=== PATIENT | male | born 1980 | race African-American/Black ===

== ENCOUNTER 2016-06-22 19:33 | Emergency (ER) | payer MEDICARE, OTHER ==
[~2016-06-22] VITALS: Ht 185.4 cm; Wt 87.1 kg
[~2016-06-22 19:33] MED LIST: CEPHALEXIN500 MG ORAL; DOXYCYCLINE MO100 MG ORAL; MEGACE400 MG/11 PO; MEGESTROL ACETA20 MG ORAL; NAPROSYN500 M1 ORAL; NORCO 10/3251 EA ORAL
[2016-06-22] MEDS ORDERED: triumeq PO (19:44)
[2016-06-22] MEDS ORDERED: ACYCLOVIR200 MG ORAL (19:44)
[2016-06-22 19:50] VITALS: BP 122/84
[2016-06-22] MEDS ORDERED: Azithromycin 250mg tab ORAL ONE (20:00)
[2016-06-22 20:12] LABS: APPEARANCE,URINE CLEAR; KETONES,URINE NEGATIVE (NEGATIVE); LEUKOCYTE ESTERASE ,URINE 2+ (NEGATIVE); NITRITE,URINE NEGATIVE (NEGATIVE); PH,URINE 7 (4.5-8.0); PROTEIN,URINE 1+ (NEGATIVE); UROBILINOGEN,URINE 1 MG/DL (0.0-1.0)
[2016-06-22 20:27] LABS: RBC,URINE 0-2 /HPF (0 - 0)
[2016-06-22 20:28] LABS: BACTERIA,URINE FEW /HPF; SQUAMOUS EPITHELIAL CELL,UR OCCASIONAL /LPF (NONE/OCC); WBC,URINE 30-40 /HPF (0 - 0)
[2016-06-22] MEDS ORDERED: KEFLEX500 MG ORAL (20:36)
[2016-06-22 20:58] VITALS: BP 124/79
--- NOTE | 2016-06-22 21:49 | Emergency Room Report ---
History of Present Illness General Chief Complaint: Male Urogenital Problems Source: Patient Present Illness [facility] The patient is a 35-year-old male presenting for 3 days of dysuria and white penile discharge. Patient describes pain as an 8/10 burning sensation which occurs only with urination. Pain does not radiate. The patient denies any other symptoms including nausea, vomiting, fever, chills, hematuria, increased urinary frequency, flank pain, abdominal pain. Allergies: Coded Allergies: DIPHENHYDRAMINE (Unverified Allergy, Severe, Hives, 05/11/14) IBUPROFEN (Unverified Allergy, Severe, Hives, 05/11/14) Patient History Past Medical History: see triage record Pertinent Family History: none Reviewed Nursing Documentation: PMH: Agreed, PSxH: Agreed Nursing Documentation-PMH Hx Hypertension: Yes Review of Systems All Other Systems: negative except mentioned in HPI Physical Exam Vital Signs Date Time Temp Pulse Resp B/P Pulse Ox O2 Delivery O2 Flow Rate FiO2 06/22/16 19:36 98.1 93 16 122/84 100 Room Air Sp02 EP Interpretation: reviewed, normal General Appearance: no apparent distress, alert, GCS 15, non-toxic Head: normocephalic, atraumatic Eyes: bilateral eye PERRL, bilateral eye normal inspection ENT: hearing grossly normal, normal pharynx, no angioedema, normal voice Neck: full range of motion, supple/symm/no masses Gastrointestinal: normal bowel sounds, non tender, soft, non-distended, no guarding, no rebound Genitourinary: normal inspection, no CVA tenderness, penis normal Musculoskeletal: back normal, gait/station normal, normal range of motion, non- tender Neurologic: alert, oriented x3, responsive, motor strength/tone normal, sensory intact, speech normal Psychiatric: judgement/insight normal, memory normal, mood/affect normal, no suicidal/homicidal ideation Skin: normal color, no rash, warm/dry, well hydrated Lymphatic: no adenopathy Medical Decision Making PA Attestation Dr. Morales is my supervising physician. Patient management was discussed with my supervising physician Diagnostic Impression: Primary Impression: Urinary tract infection Additional Impression: Possible exposure to STD ER Course The patient is a 35-year-old male presenting for 3 days of dysuria and white penile discharge. Differential diagnosis considered but not limited to: UTI, pyelonephritis, STD, urethritis Physical exam: Vitals within normal limits. No apparent distress Abdomen is soft and nontender. Normal bowel sounds. No CVA tenderness. Penis appears normal. Nontender. No lesions. No discharge Scrotum appears normal. No edema. No erythema. Nontender. UA: 30-40 WBCs with few bacteria Pt given 1gm azithromycin PO and 250mg Rocephin IM. [facility] ER precautions given. Laboratory Tests Test 06/22/16 19:48 Urine Color Yellow Urine Appearance Clear Urine pH 7 (4.5-8.0) Urine Specific [place] 1.010 (1.005-1.035) Urine Protein 1+ (NEGATIVE) H Urine Glucose (UA) Negative (NEGATIVE) Urine Ketones Negative (NEGATIVE) Urine Occult Blood Negative (NEGATIVE) Urine Nitrite Negative (NEGATIVE) Urine Bilirubin Negative (NEGATIVE) Urine Urobilinogen 1 MG/DL (0.0-1.0) H Urine Leukocyte Esterase 2+ (NEGATIVE) H Urine RBC 0-2 /HPF (0 - 0) H Urine WBC 30-40 /HPF (0 - 0) H Urine Squamous Epithelial Cells Occasional /LPF Urine Bacteria Few /HPF (NONE) Lab Results Impression 30-40 WBCs with few bacteria Last Vital Signs Date Time Temp Pulse Resp B/P Pulse Ox O2 Delivery O2 Flow Rate FiO2 06/22/16 20:58 98.1 89 16 122/84 100 Room Air Status: improved Disposition: HOME, SELF-CARE Condition: Improved Scripts Cephalexin* (KEFLEX*) 500 Mg Capsule 500 MG ORAL EVERY 6 HOURS, #28 CAP 0 Refills Prov: KATIE FOY 06/22/16 Referrals: NON PHYSICIAN (PCP) Patient Instructions: Urinary Tract Infection Additional Instructions: I discussed my findings with the patient. All questions and concerns have been answered. Treatment and medication compliance have been addressed. I advised the patient that they need to follow up with PMD in 3-5 days. Return to ED if symptoms worsen, new symptoms arise, or if needed for any reason. Patient verbalized understanding of discharge instructions. KATIE FOY Jun 22, 2016 21:49
== END 2016-06-22 20:58 | disposition home or self-care (01) ==
LOC: EMR 20:50
DX: N39.0 Urinary tract infection, site not specified (principal); Z20.2 Contact with and (suspected) exposure to infections with a predominantly sexual mode of transmission; I10 Essential (primary) hypertension; Z88.8 Allergy status to other drugs, medicaments and biological substances; Z88.6 Allergy status to analgesic agent
CPT/HCPCS: 81003; 96372; 99283; J0696

== ENCOUNTER 2016-08-29 16:17 | Emergency (ER) | payer MEDICARE, OTHER ==
[~2016-08-29] VITALS: Ht 185.4 cm; Wt 87.1 kg
[~2016-08-29 16:17] MED LIST changes: +ACYCLOVIR200 MG ORAL; +KEFLEX500 MG ORAL; +triumeq PO
--- NOTE | 2016-08-29 16:48 | Emergency Room Report ---
History of Present Illness General Chief Complaint: Eye Problems Present Illness HPI 35-year-old male presents emergency department complaining of bilateral twitching of the eye x1 week. Patient denies erythema, discharge, increase in my permission, foreign body sensation, eye pain, trauma to the eye. Patient denies drug use. Patient reports he has been under tremendous stress lately and has been having difficulty sleeping. Patient reports past medical history of HIV denies fevers chills cough recent illness or ill contacts.Denies CP, Palpitations, LOC, AMS, dizziness, Changes in Vision, Sensation, paresthesias, or a sudden severe headache. Allergies: Coded Allergies: DIPHENHYDRAMINE (Unverified Allergy, Severe, Hives, 05/11/14) IBUPROFEN (Unverified Allergy, Severe, Hives, 05/11/14) Patient History Past Medical History: see triage record Past Surgical History: none Pertinent Family History: none Immunizations: UTD Reviewed Nursing Documentation: PMH: Agreed, PSxH: Agreed Nursing Documentation-PMH Hx Hypertension: Yes Review of Systems All Other Systems: negative except mentioned in HPI Physical Exam Vital Signs Date Time Temp Pulse Resp B/P Pulse Ox O2 Delivery O2 Flow Rate FiO2 08/29/16 16:20 97.9 109 20 131/84 95 Room Air Sp02 EP Interpretation: reviewed, abnormal - tachycardic at 109 General Appearance: no apparent distress, alert, GCS 15, non-toxic Head: normocephalic, atraumatic Eyes: bilateral eye EOMI, bilateral eye PERRL, bilateral eye normal inspection ENT: hearing grossly normal, normal pharynx, no angioedema, normal voice Neck: full range of motion, supple/symm/no masses Respiratory: chest non-tender, lungs clear, normal breath sounds, speaking full sentences Cardiovascular #1: regular rate, rhythm, no edema Musculoskeletal: back normal, gait/station normal, normal range of motion, non- tender Neurologic: alert, oriented x3, responsive, motor strength/tone normal, sensory intact, speech normal Psychiatric: judgement/insight normal, memory normal, mood/affect normal Skin: normal color, no rash, warm/dry, well hydrated Lymphatic: no adenopathy Medical Decision Making PA Attestation Dr. Clark is my supervising Physician whom patient management has been discussed with. Diagnostic Impression: Primary Impression: Eye twitch ER Course 35-year-old male presents emergency department complaining of bilateral twitching of the eye x1 week. Patient denies erythema, discharge, increase in my permission, foreign body sensation, eye pain, trauma to the eye. Patient denies drug use. Patient reports he has been under tremendous stress lately and has been having difficulty sleeping. Patient reports past medical history of HIV denies fevers chills cough recent illness or ill contacts. - Pt denies Contact lens use. Ddx considered but are not limited to: corneal abrasion, acute glaucoma, globe rupture, FB, Corneal Ulcer, conjunctivitis. Iridis Vital signs: are WNL, pt. is afebrile H&PE are most consistent with: corneal abrasion ORDERS: -none required at this time. As patient symptoms are only limited to twitching of the eyelid there is no evidence of infection or history that suggests foreign body at this time emergent condition is not present. ED INTERVENTIONS: none at this time. -I do not suspect an emergent condition at this time. with current presentation pt. is stable for close outpatient follow up. DISCHARGE: At this time pt. is stable for d/c to home. Will provide printed patient care instructions, and any necessary prescriptions. Care plan and follow up instructions have been discussed with the patient prior to discharge. . Last Vital Signs Date Time Temp Pulse Resp B/P Pulse Ox O2 Delivery O2 Flow Rate FiO2 08/29/16 16:20 97.9 109 20 131/84 95 Room Air Disposition: HOME, SELF-CARE Condition: Stable Scripts Dextran 70/Hypromellose (ARTIFICIAL TEARS EYE DROPS*) 15 Ml Drops 1 DROP BOTH EYES Q6HR, #15 ML 0 Refills Prov: Radha Catalan 08/29/16 Patient Instructions: Medical Screening Exam Additional Instructions: Take medications as directed. Follow up with PCP or Framing Mill Operator Helper in 3-5 days- especially if eye twitching symptoms continue. Return sooner to ED if new symptoms occur, or current symptoms become worse. - Please note that this Emergency Department Report was dictated using LinguaLeoresistor inspector technology software, occasionally this can lead to erroneous entry secondary to interpretation by the dictation equipment. Radha Catalan August 29, 2016 16:48
[2016-08-29] MEDS ORDERED: ARTIFICIAL TEAR15 ML BOTH EYES (16:50)
[2016-08-29 16:57] VITALS: BP 131/84
[2016-08-29 17:01] VITALS: BP 131/84
== END 2016-08-29 17:00 | disposition home or self-care (01) ==
LOC: EMR 17:00
DX: H57.8 Other specified disorders of eye and adnexa (principal); I10 Essential (primary) hypertension; Z88.6 Allergy status to analgesic agent
CPT/HCPCS: 99283

== ENCOUNTER 2016-10-03 21:35 | Emergency (ER) | payer MEDICARE, OTHER ==
[~2016-10-03] VITALS: Ht 185.4 cm; Wt 87.1 kg
[~2016-10-03 21:35] MED LIST changes: +ARTIFICIAL TEAR15 ML BOTH EYES
[2016-10-03] MEDS ORDERED: LISINOPRIL10 MG ORAL (21:44)
[2016-10-03] MEDS ORDERED: MULTI VITAMIN1 EACH ORAL (21:44)
[2016-10-03] MEDS ORDERED: CLARITIN10 M2 ORAL (21:44)
[2016-10-03 21:45] VITALS: BP 123/82
[2016-10-03] MEDS ORDERED: SIMETHICONE80 MG ORAL (22:45)
[2016-10-03] MEDS ORDERED: PEPCID20 MG ORAL (22:45)
[2016-10-03 22:51] VITALS: BP 128/71
[2016-10-03] MEDS ORDERED: Mylanta II UD 30ml ORAL ONE (23:00)
--- NOTE | 2016-10-03 23:06 | Emergency Room Report ---
History of Present Illness General Chief Complaint: Constipation Source: Patient Present Illness HPI 35YOM walk-in with 1 day stomach bloating, discomfort, nausea. Had BM earlier but "Wasnt complete." Had to "force it." Recent change in diet after DC from psych facility and now eating at soup kitchen. Denies previous abd/pelvic surgery. Denies urinary complaints, vomiting, diarrhea. Allergies: Coded Allergies: No Known Allergies (Unverified , 10/03/16) Patient History Past Medical History: psych hx Past Surgical History: none Pertinent Family History: none Social History: Denies: alcohol use, drug use, smoking Immunizations: UTD Reviewed Nursing Documentation: PMH: Agreed, PSxH: Agreed Nursing Documentation-PMH Hx Hypertension: Yes Review of Systems All Other Systems: negative except mentioned in HPI Physical Exam Vital Signs Date Time Temp Pulse Resp B/P Pulse Ox O2 Delivery O2 Flow Rate FiO2 10/03/16 21:39 98.1 76 16 123/82 95 Room Air Sp02 EP Interpretation: reviewed, normal General Appearance: normal inspection, well appearing, no apparent distress, alert, GCS 15, non-toxic Head: normocephalic, atraumatic Eyes: bilateral eye EOMI, bilateral eye PERRL ENT: normal ENT inspection, hearing grossly normal, normal voice Neck: normal inspection, full range of motion, supple, no bony tend Respiratory: normal inspection, lungs clear, normal breath sounds, no respiratory distress, no retraction, no wheezing Cardiovascular #1: regular rate, rhythm, no edema Gastrointestinal: normal inspection, normal bowel sounds, non tender, soft, no guarding, no hernia Genitourinary: no CVA tenderness Musculoskeletal: normal inspection, back normal, normal range of motion, Liza' s Sign negative Neurologic: normal inspection, alert, oriented x3, responsive, tailor garment fitter III-XII nml as tested, motor strength/tone normal, speech normal Psychiatric: normal inspection, judgement/insight normal, mood/affect normal Skin: normal inspection, normal color, no rash Lymphatic: normal inspection Medical Decision Making Diagnostic Impression: Primary Impression: Bloating Additional Impression: Viral gastroenteritis ER Course Likely viral gastroenteritis symptoms VSS. Afebrile. Non focal abdomen Low suspicion for acute bacterial or surgical process requiring further lab, imaging or admission Rx supportive Tx DC home Last Vital Signs Date Time Temp Pulse Resp B/P Pulse Ox O2 Delivery O2 Flow Rate FiO2 10/03/16 21:39 98.1 76 16 123/82 95 Room Air Status: improved Disposition: HOME, SELF-CARE Condition: Improved Scripts Simethicone* (SIMETHICONE*) 80 Mg Tab.chew 80 MG ORAL Q8H Y for GAS PAIN for 7 Days, #20 TAB 0 Refills Prov: MIGUEL ARORA M.D. 10/03/16 Famotidine (PEPCID) 20 Mg Tablet 20 MG ORAL BID for 7 Days, #14 TAB 0 Refills Prov: MIGUEL ARORA M.D. 10/03/16 Referrals: NON PHYSICIAN (PCP) Patient Instructions: Viral Gastroenteritis, Adult, [id number] Additional Instructions: - Take pepcid twice daily for 1 week - Take simethicone as needed for bloating MIGUEL ARORA M.D. Oct 03, 2016 23:06
== END 2016-10-03 22:51 | disposition home or self-care (01) ==
LOC: EMR 21:55
DX: R14.0 Abdominal distension (gaseous) (principal); A08.4 Viral intestinal infection, unspecified; I10 Essential (primary) hypertension
CPT/HCPCS: 99284

== ENCOUNTER 2017-01-14 15:47 | Emergency (ER) | payer MEDICARE, OTHER ==
[~2017-01-14] VITALS: Ht 185.4 cm; Wt 86.2 kg
[~2017-01-14 15:47] MED LIST changes: +CLARITIN10 M2 ORAL; +LISINOPRIL10 MG ORAL; +MULTI VITAMIN1 EACH ORAL; +PEPCID20 MG ORAL; +SIMETHICONE80 MG ORAL
[2017-01-14] MEDS ORDERED: Ketorolac 60mg Inj IM ONE (16:30)
--- NOTE | 2017-01-14 16:30 | Emergency Room Report ---
History of Present Illness General Chief Complaint: Back Pain-No Injury Source: Patient Present Illness HPI 36-year-old male presents to the emergency department complaining of 8/10 in severity localized left-sided upper back pain times several weeks. Patient denies appreciable trauma or fall. Patient denies fevers, chills, recent spinal procedures, history of cancer or recent illness. Patient states he does not recall specific incident of strenuous activity. Patient states the pain is tight and spasm-ing in nature and he believes is muscular. Patient denies midline spinal or neck pain. He has not taken any medication for his symptoms. pt. initially thought he slept wrong and have been doing watchful waiting at home. Denies numbness tingling or loss of sensation or gross motor movements of the extremities, incontinence of bowel or bladder. Denies CP, Palpitations, LOC , AMS, dizziness, Changes in Vision, Sensation, paresthesias, or a sudden severe headache. Allergies: Coded Allergies: No Known Allergies (Unverified , 10/03/16) Patient History Past Medical History: see triage record Past Surgical History: none Pertinent Family History: none Immunizations: UTD Reviewed Nursing Documentation: PMH: Agreed, PSxH: Agreed Nursing Documentation-PMH Past Medical History: No History, Except For Hx Hypertension: Yes Review of Systems All Other Systems: negative except mentioned in HPI Physical Exam Vital Signs Date Time Temp Pulse Resp B/P (MAP) Pulse Ox O2 Delivery O2 Flow Rate FiO2 01/14/17 15:56 97.9 79 18 182/137 97 Room Air Sp02 EP Interpretation: reviewed, normal General Appearance: no apparent distress, alert, GCS 15, non-toxic Head: normocephalic, atraumatic Eyes: bilateral eye normal inspection, bilateral eye PERRL ENT: hearing grossly normal, normal voice Neck: full range of motion Respiratory: lungs clear, normal breath sounds, speaking full sentences Cardiovascular #1: regular rate, rhythm Gastrointestinal: non tender, non-distended Rectal: deferred Genitourinary: normal inspection, no CVA tenderness Musculoskeletal: back normal, gait/station normal, normal range of motion, tender - TTP in the Left thoracic paraspinal muscles, no midline ttp, no obvious deformities, FROM. Neurologic: alert, oriented x3, responsive, motor strength/tone normal, sensory intact, normal gait, speech normal Psychiatric: judgement/insight normal, memory normal, mood/affect normal Skin: normal color, no rash, warm/dry, well hydrated Medical Decision Making PA Attestation Dr. Guzman is my supervising Physician whom patient management has been discussed with. Diagnostic Impression: Primary Impression: Paraspinal muscle spasm Additional Impression: Back pain Qualified Codes: M54.6 - Pain in thoracic spine ER Course 36-year-old male presents to the emergency department complaining of 8/10 in severity localized left-sided upper back pain times several weeks. Patient denies appreciable trauma or fall. Patient denies fevers, chills, recent spinal procedures, history of cancer or recent illness. Patient states he does not recall specific incident of strenuous activity. Patient states the pain is tight and spasm-ing in nature and he believes is muscular. Patient denies midline spinal or neck pain. He has not taken any medication for his symptoms. pt. initially thought he slept wrong and have been doing watchful waiting at home. Denies numbness tingling or loss of sensation or gross motor movements of the extremities, incontinence of bowel or bladder. Denies CP, Palpitations, LOC , AMS, dizziness, Changes in Vision, Sensation, paresthesias, or a sudden severe headache. Ddx considered but are not limited to Fracture, dislocation, contusion, epidural abscess, Sprain/Strain/Spasm, pulmonary or abdominal pathology just to name a few. Vital signs: are WNL, pt. is afebrile H&PE are most consistent with muscle spasm-- TTP in the Left thoracic paraspinal muscles, no midline ttp, no obvious deformities, FROM. Reproducible on PE. lungs CTA. ORDERS: none required at this time. ED INTERVENTIONS: -Soma PO -Toradol IM - D/w pt. Conservative treatment, with close outpatient follow up. d/w pt. that may require physical therapy or further evaluation if his symptoms persist despite conservative treatment and rest. gave pt. ED return precautions for worsening or new symptoms. DISCHARGE: At this time pt. is stable for d/c to home. Will provide printed patient care instructions, and any necessary prescriptions. Care plan and follow up instructions have been discussed with the patient prior to discharge. Last Vital Signs Date Time Temp Pulse Resp B/P (MAP) Pulse Ox O2 Delivery O2 Flow Rate FiO2 01/14/17 15:56 97.9 79 18 182/137 97 Room Air Disposition: HOME, SELF-CARE Condition: Stable Scripts Ibuprofen* (MOTRIN*) 600 Mg Tablet 600 MG ORAL THREE TIMES A DAY, #30 TAB 0 Refills Prov: Radha Catalan 01/14/17 Cyclobenzaprine Hcl* (FLEXERIL*) 10 Mg Tablet 10 MG ORAL THREE TIMES A DAY for 7 Days, #21 TAB Prov: Radha Catalan 01/14/17 Patient Instructions: Muscle Cramps and Spasms, [id number], Muscle Pain, Adult Additional Instructions: Take medications as directed. Follow up with a Primary Care Provider in 3-5 days, even if your symptoms have resolved. --Please review list of primary care clinics, if you do not already have a primary care provider Return sooner to ED if new symptoms occur, or current symptoms become worse. Do not drink alcohol, drive, or operate heavy machinery while taking Muscle Relaxer as this may cause drowsiness. - Please note that this Emergency Department Report was dictated using [employer] recovery unit operator technology software, occasionally this can lead to erroneous entry secondary to interpretation by the dictation equipment. Radha Catalan Jan 14, 2017 16:30
[2017-01-14] MEDS ORDERED: CYCLOBENZAPRINE10 MG ORAL (16:40)
[2017-01-14] MEDS ORDERED: IBUPROFEN600 MG ORAL (16:40)
[2017-01-14 16:55] VITALS: BP 136/65
== END 2017-01-14 16:55 | disposition home or self-care (01) ==
LOC: EMR 16:31
DX: M62.830 Muscle spasm of back (principal); M54.6 Pain in thoracic spine; I10 Essential (primary) hypertension
CPT/HCPCS: 96372; 99284

== ENCOUNTER 2017-01-25 22:33 | Emergency (ER) | payer MEDICARE, OTHER ==
[~2017-01-25] VITALS: Ht 185.4 cm; Wt 86.2 kg
[~2017-01-25 22:33] MED LIST changes: +CYCLOBENZAPRINE10 MG ORAL; +IBUPROFEN600 MG ORAL
[2017-01-25] MEDS ORDERED: Acetaminophen 500mg (ES) tab ORAL ONE (23:00)
[2017-01-25] MEDS ORDERED: ALUM-MAG HYDRO360 ML PO (23:16)
[2017-01-25] MEDS ORDERED: ZIDOVUDINE ORAL (23:16)
[2017-01-25] MEDS ORDERED: ACETAMINOPHEN325 M1 ORAL (23:16)
[2017-01-25] MEDS ORDERED: CLARITIN10 M2 ORAL (23:16)
[2017-01-25] MEDS ORDERED: ZOLPIDEM TARTRA10 MG ORAL (23:16)
[2017-01-25] MEDS ORDERED: ATIVAN2 MG ORAL (23:16)
[2017-01-25] MEDS ORDERED: ABACAVIR ORAL (23:16)
[2017-01-25] MEDS ORDERED: LAMIVUDINE ORAL (23:16)
[2017-01-25] MEDS ORDERED: RISPERDAL2 MG ORAL (23:16)
[2017-01-25] MEDS ORDERED: ZOLOFT100 MG ORAL (23:16)
--- NOTE | 2017-01-25 23:23 | Emergency Room Report ---
History of Present Illness General Chief Complaint: Flu Like Symptoms Source: Patient Present Illness HPI 28-year-old male, HIV positive, coming to the ED complaining of "not feeling well". Patient states that he relapse, yesterday did meth and drink alcohol, now today feeling chills, muscle aches Denies any chest pain or shortness of breath Denies any IV drug abuse in the past or present Patient states that she has been compliant with his HIV medication, last time he checked his CD4 count it was within the last 3 months, does not know exact number but was told it was normal No other complaints Allergies: Coded Allergies: No Known Allergies (Unverified , 10/03/16) Patient History Past Medical History: see triage record Past Surgical History: none Pertinent Family History: none Reviewed Nursing Documentation: PMH: Agreed, PSxH: Agreed Nursing Documentation-PMH Hx Hypertension: Yes - Hyperlipidemia Hx Gastrointestinal Problems: Yes - GERD History Of Psychiatric Problem: Yes - Schizophrenia, depression, anxiety, insomnia Review of Systems All Other Systems: negative except mentioned in HPI Physical Exam Vital Signs Date Time Temp Pulse Resp B/P (MAP) Pulse Ox O2 Delivery O2 Flow Rate FiO2 01/25/17 22:26 99.1 123 16 128/82 97 Room Air Sp02 EP Interpretation: reviewed, normal General Appearance: alert, GCS 15, non-toxic, other - Anxious appearing male, cooperative, speaking complete sentences, nontoxic Head: normocephalic, atraumatic Eyes: bilateral eye normal inspection, bilateral eye PERRL, bilateral eye EOMI ENT: normal ENT inspection, normal pharynx, normal voice, moist mucus membranes Neck: normal inspection, full range of motion, supple Respiratory: normal inspection, lungs clear, normal breath sounds, no respiratory distress, no retraction, no wheezing, speaking full sentences, chest symmetrical Cardiovascular #1: normal inspection, regular rate, rhythm, no edema, normal capillary refill Cardiovascular #2: 2+ radial (R), 2+ radial (L) Gastrointestinal: normal inspection, non tender, soft, non-distended, no guarding Genitourinary: no CVA tenderness Musculoskeletal: normal inspection, back normal, normal range of motion, non- tender Neurologic: normal inspection, alert, oriented x3, responsive, motor strength/ tone normal, sensory intact, normal gait, speech normal Psychiatric: normal inspection, judgement/insight normal, memory normal Skin: normal inspection, normal color, no rash, warm/dry, well hydrated, normal turgor Medical Decision Making Diagnostic Impression: Primary Impression: Generalized weakness Additional Impression: Drug use ER Course 28-year-old male presenting with chills, overall muscle weakness, after doing meth yesterday DDX: Dehydration, electrolyte imbalance, versus drug-induced/withdrawal Plan: Obtain labs, tox, CXR ER course: Patient has remained stable during ED stay. feels much better ambulatory in ed Labs unremarkable, no leukopenia Last HR 80s appears nontoxic, will dc back to SNF facility Disposition: Patient is to be discharged to snf . Patient advised to stop all drug use Strict return precautions discussed with patient such as fever, chills, worsening/severe pain, nausea, vomiting, which may indicate severe illness. Patient verbalizes understanding and agrees with plan. Please note that this Emergency Department Report was dictated using [employer] portable boiler technology software, occasionally this can lead to erroneous entry secondary to interpretation by the dictation equipment CXR Ordered: Yes 1 view Indication: Chest pain EP interpretation: Yes Interpretation: No consolidation, no effusion, no PTX, no acute cardiopulmonary disease Impression: No acute disease Electronically signed by Kang Cochran MD Laboratory Tests Test 01/25/17 23:00 01/25/17 23:10 White Blood Count 7.2 K/UL (4.8-10.8) Red Blood Count 4.95 M/UL (4.70-6.10) Hemoglobin 15.3 G/DL (14.2-18.0) Hematocrit 48.7 % (42.0-52.0) Mean Corpuscular Volume 98 FL (80-99) Mean Corpuscular Hemoglobin 31.0 PG (27.0-31.0) Mean Corpuscular Hemoglobin Concent 31.5 G/DL (32.0-36.0) L Red Cell Distribution Width 11.6 % (11.6-14.8) Platelet Count 248 K/UL (150-450) Mean Platelet Volume 6.2 FL (6.5-10.1) L Neutrophils (%) (Auto) 59.4 % (45.0-75.0) Lymphocytes (%) (Auto) 21.6 % (20.0-45.0) Monocytes (%) (Auto) 12.9 % (1.0-10.0) H Eosinophils (%) (Auto) 4.2 % (0.0-3.0) H Basophils (%) (Auto) 1.9 % (0.0-2.0) Sodium Level 137 mEQ/L (135-145) Potassium Level 3.8 mEQ/L (3.4-4.9) Chloride Level 100 mEQ/L (98-107) Carbon Dioxide Level 28 mEQ/L (20-30) Anion Gap 9 (5-15) Blood Urea Nitrogen 17 mg/dL (7-23) Creatinine 1.3 mg/dL (0.7-1.2) H Estimate Glomerular Filtration Rate > 60 mL/min (>60) Glucose Level 99 mg/dL (74-106) Calcium Level 9.4 mg/dL (8.6-10.2) Total Bilirubin 0.5 mg/dL (0.0-1.2) Aspartate Amino Transferase (AST) 48 U/L (5-40) H Alanine Aminotransferase (ALT) 18 U/L (3-41) Alkaline Phosphatase 56 U/L (40-129) Total Protein 7.5 g/dL (6.6-8.7) Albumin 4.3 g/dL (3.5-5.2) Globulin 3.2 g/dL Albumin/Globulin Ratio 1.3 (1.0-2.7) Salicylates Level < 1 mg/dL (10-30) L Acetaminophen Level < 10 ug/mL (10-30) L Serum Alcohol < 10 mg/dL Urine Opiates Screen Negative (NEGATIVE) Urine Barbiturates Screen Negative (NEGATIVE) Phencyclidine (PCP) Screen Negative (NEGATIVE) Urine Amphetamines Screen Positive (NEGATIVE) H Urine Benzodiazepines Screen Negative (NEGATIVE) Urine Cocaine Screen Negative (NEGATIVE) Urine Marijuana (THC) Screen Negative (NEGATIVE) Rhythm Strip Diag. Results EP Interpretation: yes Rate: 90 Rhythm: NSR, no PVC's, no ectopy Last Vital Signs Date Time Temp Pulse Resp B/P (MAP) Pulse Ox O2 Delivery O2 Flow Rate FiO2 01/25/17 22:36 123 16 Room Air 01/25/17 22:26 99.1 128/82 97 Disposition: HOME, SELF-CARE Condition: Improved Kang Cochran M.D. Jan 25, 2017 23:23
[2017-01-25 23:27] LABS: BASOPHILS % (AUTO) 1.9 % (0.0-2.0); EOSINOPHILS % (AUTO) 4.2 % (0.0-3.0); LYMPHOCYTES % (AUTO) 21.6 % (20.0-45.0); MEAN CORPUSCULAR HGB CONC 31.5 G/DL (32.0-36.0); MEAN CORPUSCULAR VOLUME 98 FL (80-99); MEAN PLATELET VOLUME 6.2 FL (6.5-10.1); MONOCYTES % (AUTO) 12.9 % (1.0-10.0); NEUTROPHILS % (AUTO) 59.4 % (45.0-75.0); PLATELET COUNT 248 K/UL (150-450); RED BLOOD COUNT 4.95 M/UL (4.70-6.10); RED CELL DISTRIBUTION WIDTH 11.6 % (11.6-14.8); WHITE BLOOD COUNT 7.2 K/UL (4.8-10.8)
[2017-01-25 23:42] LABS: ACETAMINOPHEN < 10 ug/mL (10-30); ALANINE AMINOTRANSFERASE 18 U/L (3-41); ALBUMIN/GLOBULIN RATIO 1.3 (1.0-2.7); ALCOHOL < 10 mg/dL; ANION GAP 9 (5-15); ASPARTATE AMINO TRANSFERASE 48 U/L (5-40); CALCIUM 9.4 mg/dL (8.6-10.2); CARBON DIOXIDE 28 mEQ/L (20-30); CHLORIDE 100 mEQ/L (98-107); CREATININE 1.3 mg/dL (0.7-1.2); GLOMERULAR FILTRATION RATE > 60 mL/min (>60); HEMOLYSIS 4; POTASSIUM 3.8 mEQ/L (3.4-4.9); SODIUM 137 mEQ/L (135-145); TOTAL PROTEIN 7.5 g/dL (6.6-8.7)
[2017-01-25 23:49] VITALS: BP 140/84
[2017-01-26] MEDS ORDERED: LORazepam Inj 2mg/ml 1ml IV ONE (00:30)
[2017-01-26 01:10] VITALS: BP 126/93
--- NOTE | 2017-01-26 10:11 | Diagnostic Imaging Report ---
Indication: Chest pain Technique: XRAY CHEST 1 V Comparison: 06/17/15 Findings: Cardiomediastinal silhouette is stable. There is no consolidation, pneumothorax or pleural effusion. Osseous structures are stable. Impression: No acute cardiopulmonary disease.
== END 2017-01-26 01:10 | disposition home or self-care (01) ==
LOC: EDBD 22:33 → EMR 22:58
DX: R53.1 Weakness (principal); B20 Human immunodeficiency virus [HIV] disease; E78.5 Hyperlipidemia, unspecified; F32.9 Major depressive disorder, single episode, unspecified; K21.9 Gastro-esophageal reflux disease without esophagitis; F41.9 Anxiety disorder, unspecified; G47.00 Insomnia, unspecified
CPT/HCPCS: 36415; 71010; 80053; 80300; 85025; 96374; 99284; G0480; 80329

== ENCOUNTER 2017-03-17 12:04 | Emergency (ER) | payer MEDICARE, OTHER ==
[~2017-03-17] VITALS: Ht 185.4 cm; Wt 85.3 kg
[~2017-03-17 12:04] MED LIST changes: +ABACAVIR ORAL; +ACETAMINOPHEN325 M1 ORAL; +ALUM-MAG HYDRO360 ML PO; +ATIVAN2 MG ORAL; +LAMIVUDINE ORAL; +RISPERDAL2 MG ORAL; +ZIDOVUDINE ORAL; +ZOLOFT100 MG ORAL; +ZOLPIDEM TARTRA10 MG ORAL
--- NOTE | 2017-03-17 12:39 | Emergency Room Report ---
History of Present Illness General Chief Complaint: Toothache Present Illness HPI 36-year-old male presents to the emergency department complaining of 10 out of 10 in severity progressive onset dental pain to the right posterior molar. Patient reports that initially his pain was handled with Motrin however his symptoms have progressed and are no longer responding to this medication. Patient reports that he has an appointment scheduled for 11:30 on March 22. Patient denies fevers, chills, swelling of the gums, or sore throat. Patient reports that he had several dental caries in the right posterior molar and the tooth is also chipped. Patient reports that he was told that he will need a rout canal or have the tooth pulled. Patient denies headache, neck pain or stiffness.Denies CP, Palpitations, LOC, AMS, dizziness, Changes in Vision, Sensation, paresthesias, or a sudden severe headache. Allergies: Coded Allergies: No Known Allergies (Unverified , 10/03/16) Patient History Past Medical History: see triage record Past Surgical History: none Pertinent Family History: none Immunizations: UTD Reviewed Nursing Documentation: PMH: Agreed, PSxH: Agreed Nursing Documentation-PMH Hx Hypertension: Yes - Hyperlipidemia Hx Gastrointestinal Problems: Yes - GERD Review of Systems All Other Systems: negative except mentioned in HPI Physical Exam Vital Signs Date Time Temp Pulse Resp B/P (MAP) Pulse Ox O2 Delivery O2 Flow Rate FiO2 03/17/17 12:05 97.9 88 18 122/81 96 Room Air Sp02 EP Interpretation: reviewed, normal General Appearance: no apparent distress, alert, GCS 15, non-toxic Head: normocephalic, atraumatic Eyes: bilateral eye normal inspection, bilateral eye PERRL ENT: hearing grossly normal, normal pharynx, normal voice, TMs + canals normal , uvula midline, other - Tenderness to percussion pulpitis of tooth no. 1 ( right posterior molar) with obvious structural compromise, no evidence of gum infection, or palpable abscess at this time. Neck: full range of motion, supple/symm/no masses Respiratory: lungs clear, normal breath sounds, speaking full sentences Cardiovascular #1: regular rate, rhythm Musculoskeletal: back normal, gait/station normal, normal range of motion, non- tender Neurologic: alert, oriented x3, responsive, motor strength/tone normal, sensory intact, speech normal Skin: normal color, no rash, warm/dry, well hydrated Lymphatic: no adenopathy Medical Decision Making PA Attestation Dr. Clark is my supervising Physician whom patient management has been discussed with. Diagnostic Impression: Primary Impression: Pulpitis ER Course 36-year-old male presents to the emergency department complaining of 10 out of 10 in severity progressive onset dental pain to the right posterior molar. Patient reports that initially his pain was handled with Motrin however his symptoms have progressed and are no longer responding to this medication. Patient reports that he has an appointment scheduled for 11:30 on March 22. Patient denies fevers, chills, swelling of the gums, or sore throat. Patient reports that he had several dental caries in the right posterior molar and the tooth is also chipped. Patient reports that he was told that he will need a rout canal or have the tooth pulled. Patient denies headache, neck pain or stiffness.Denies CP, Palpitations, LOC, AMS, dizziness, Changes in Vision, Sensation, paresthesias, or a sudden severe headache. Ddx considered but are not limited to cellulitis, dental abscess, orbital cellulitis, d/l tooth, dental pain. trigeminal neuralgia Vital signs: are WNL, pt. is afebrile H&PE are most consistent with pulpitis of tooth no. 1 ( right posterior molar) with obvious structural compromise, no evidence of gum infection, or palpable abscess at this time. ORDERS: none required at this time, the diagnosis is clinical ED INTERVENTIONS: None required at this time. -d/w pt. that he will need to use antiseptic mouth wash, will give viscous lidocaine and small qty of pain medication. if he requires refill he needs to contact the dentist which he has an appt. with or his PCP. DISCHARGE: At this time pt. is stable for d/c to home. Will provide printed patient care instructions, and any necessary prescriptions. Care plan and follow up instructions have been discussed with the patient prior to discharge. Last Vital Signs Date Time Temp Pulse Resp B/P (MAP) Pulse Ox O2 Delivery O2 Flow Rate FiO2 03/17/17 12:05 97.9 88 18 122/81 96 Room Air Disposition: HOME, SELF-CARE Condition: Stable Scripts Acetaminophen With Codeine (T#3) (TYLENOL #3 TAB*) Y Tab 1 TAB ORAL Q4H Y for For Pain, #6 TAB Prov: Radha Catalan 03/17/17 Lidocaine HCl 2% Viscous (Lidocaine HCl 2% Viscous) 100 Ml Solution 15 ML ORAL QID, #100 ML Prov: Radha Catalan 03/17/17 Chlorhexidine Gluconate (CHLORHEXIDINE GLUCONATE) 473 Ml Mouthwash 15 ML MM TID, #437 ML Prov: Radha Catalan 03/17/17 Patient Instructions: Dental Pain Additional Instructions: Take medications as directed. Follow up with a Dentist in 3-5 days, even if your symptoms have resolved. * * --Please review list of Dental clinics, if you do not already have a Dentist Return sooner to ED if new symptoms occur, or current symptoms become worse. Do not drink alcohol, drive, or operate heavy machinery while taking Tylenol # 3 as this may cause drowsiness. - Please note that this Emergency Department Report was dictated using [employer] respiratory care technology software, occasionally this can lead to erroneous entry secondary to interpretation by the dictation equipment. Radha Catalan Mar 17, 2017 12:39
[2017-03-17] MEDS ORDERED: CHLORHEXIDINE473 ML MM (13:00)
[2017-03-17] MEDS ORDERED: LIDOCAINE VISC100 ML ORAL (13:00)
[2017-03-17] MEDS ORDERED: ACETAMINOPHEN-1 EAC1 ORAL (13:00)
[2017-03-17 13:07] VITALS: BP 120/87
== END 2017-03-17 13:10 | disposition home or self-care (01) ==
LOC: EMR 12:30
DX: K04.01 Reversible pulpitis (principal); K21.9 Gastro-esophageal reflux disease without esophagitis; E78.5 Hyperlipidemia, unspecified
CPT/HCPCS: 99283

== ENCOUNTER 2017-04-23 17:01 | Emergency (ER) | payer MEDICARE, MEDICAID ==
[~2017-04-23] VITALS: Ht 185.4 cm; Wt 85.3 kg
[~2017-04-23 17:01] MED LIST changes: +ACETAMINOPHEN-1 EAC1 ORAL; +CHLORHEXIDINE473 ML MM; +LIDOCAINE VISC100 ML ORAL
[2017-04-23] MEDS ORDERED: oxyCODONE HCL/Acetaminophen 5/325mg ORAL ONE (17:45)
--- NOTE | 2017-04-23 17:47 | Emergency Room Report ---
History of Present Illness General Chief Complaint: General Complaint Source: Patient Present Illness HPI The patient presents with vomiting abdominal pain that began earlier today. The pain is 10/10 and diffuse in his abdomen - achy and crampy. He feels nauseated and that he needs to vomit. He also feels that he might have diarrhea. He thinks he ate some food that was not agreeable with him. [facility] a jail. Feels feverish but not documented temp. The patient has a history of HIV and is on medications at this time. He denies having this problem in the past. He was seen for bloating earlier last year. This started after d/c from psych facility and eating at soup kitchen. No SI or HI. No URI sy, cough, dysuria, joint pain. Feels very weak and dehydrated. Had flu vaccine. Allergies: Coded Allergies: DIPHENHYDRAMINE (Verified Allergy, Unknown, 04/23/17) Patient History Past Medical History: see triage record Social History: Reports: drug use - in past - amphetamines, Denies: smoking, alcohol use Social History [facility] Nursing Documentation: PMH: Agreed, PSxH: Agreed Nursing Documentation-PMH Hx Hypertension: Yes - Hyperlipidemia Hx Gastrointestinal Problems: Yes - GERD Review of Systems All Other Systems: negative except mentioned in HPI Physical Exam Vital Signs Date Time Temp Pulse Resp B/P (MAP) Pulse Ox O2 Delivery O2 Flow Rate FiO2 04/23/17 17:23 99.1 119 21 114/63 96 Room Air Sp02 EP Interpretation: reviewed, normal General Appearance: no apparent distress, GCS 15, other - feels weak Head: normocephalic Eyes: bilateral eye normal inspection, bilateral eye PERRL ENT: moist mucus membranes Neck: supple Respiratory: lungs clear, normal breath sounds Cardiovascular #1: tachycardia Cardiovascular #2: 2+ radial (R) Gastrointestinal: normal inspection, normal bowel sounds, soft, no mass, non- distended, no guarding, no rebound, tenderness - diffuse, not to palpation, scaphoid Genitourinary: no CVA tenderness Musculoskeletal: back normal, gait/station normal, normal range of motion Neurologic: alert, oriented x3, grossly normal Psychiatric: mood/affect normal Skin: normal inspection, warm/dry Medical Decision Making Diagnostic Impression: Primary Impression: Gastroenteritis Additional Impression: Immune compromise on medication ER Course Patient ill for 1 day with abdominal discomfort, vomiting, nausea, cramping with h/o HIV on meds. Ddx: gastroenteritis - viral vs bacterial, food poisoning diverticulitis, UTI, other opportunistic infection amongst others. Evaluation with labs, xrays. Treatment with IV hydration, zofran, pepcid and percocet. Labs with low WBC, normal H/H and lytes. Xrays normal. Fever. Tylenol given. Improved with treatment. Offered hospital observation and treatment. He states he feels well enough for outpatient observation and needs to make sure possessions are secure. Patient stable for outpatient observation and treatment. Laboratory Tests Test 04/23/17 18:10 04/23/17 20:00 White Blood Count 5.1 K/UL (4.8-10.8) Red Blood Count 4.78 M/UL (4.70-6.10) Hemoglobin 15.6 G/DL (14.2-18.0) Hematocrit 46.5 % (42.0-52.0) Mean Corpuscular Volume 97 FL (80-99) Mean Corpuscular Hemoglobin 32.6 PG (27.0-31.0) H Mean Corpuscular Hemoglobin Concent 33.5 G/DL (32.0-36.0) Red Cell Distribution Width 12.0 % (11.6-14.8) Platelet Count 252 K/UL (150-450) Mean Platelet Volume 6.5 FL (6.5-10.1) Neutrophils (%) (Auto) 78.5 % (45.0-75.0) H Lymphocytes (%) (Auto) 9.4 % (20.0-45.0) L Monocytes (%) (Auto) 6.5 % (1.0-10.0) Eosinophils (%) (Auto) 4.0 % (0.0-3.0) H Basophils (%) (Auto) 1.6 % (0.0-2.0) Prothrombin Time 10.1 SEC (9.30-11.50) Prothrombin Time INR 1.0 (0.9-1.1) PTT 29 SEC (23-33) Sodium Level 138 MMOL/L (136-145) Potassium Level 3.7 MMOL/L (3.5-5.1) Chloride Level 101 MMOL/L (98-107) Carbon Dioxide Level 27 MMOL/L (21-32) Anion Gap 10 mmol/L (5-15) Blood Urea Nitrogen 16 mg/dL (7-18) Creatinine 1.0 MG/DL (0.55-1.30) Estimate Glomerular Filtration Rate > 60 mL/min (>60) Glucose Level 96 MG/DL (74-106) Lactic Acid Level 1.00 mmol/L (0.66-2.22) Calcium Level 8.0 MG/DL (8.5-10.1) L Total Bilirubin 0.5 MG/DL (0.2-1.0) Aspartate Amino Transferase (AST) 51 U/L (15-37) H Alanine Aminotransferase (ALT) 25 U/L (12-78) Alkaline Phosphatase 75 U/L (46-116) Total Creatine Kinase 373 U/L (26-308) H Total Protein 8.3 G/DL (6.4-8.2) H Albumin 3.9 G/DL (3.4-5.0) Globulin 4.4 g/dL Albumin/Globulin Ratio 0.9 (1.0-2.7) L Lipase 102 U/L (73-393) Serum Alcohol < 3 mg/dL Urine Color Yellow Urine Appearance Clear Urine pH 8 (4.5-8.0) Urine Specific [place] 1.015 (1.005-1.035) Urine Protein Negative (NEGATIVE) Urine Glucose (UA) Negative (NEGATIVE) Urine Ketones Negative (NEGATIVE) Urine Occult Blood Negative (NEGATIVE) Urine Nitrite Negative (NEGATIVE) Urine Bilirubin Negative (NEGATIVE) Urine Urobilinogen 1 MG/DL (0.0-1.0) H Urine Leukocyte Esterase 1+ (NEGATIVE) H Urine RBC 0 /HPF (0 - 0) Urine WBC 0-2 /HPF (0 - 0) Urine Squamous Epithelial Cells None /LPF (NONE/OCC) Urine Bacteria None /HPF (NONE) Urine Opiates Screen Negative (NEGATIVE) Urine Barbiturates Screen Negative (NEGATIVE) Phencyclidine (PCP) Screen Negative (NEGATIVE) Urine Amphetamines Screen Negative (NEGATIVE) Urine Benzodiazepines Screen Negative (NEGATIVE) Urine Cocaine Screen Negative (NEGATIVE) Urine Marijuana (THC) Screen Negative (NEGATIVE) Chest X-Ray Diagnostic Results Chest X-Ray Diagnostic Results : Chest X-Ray Ordered: Yes # of Views/Limited/Complete: 1 View Indication: Other EP Interpretation: Yes Interpretation: no consolidation, no effusion, no pneumothorax Impression: No acute disease Electronically Signed by: Sean Morales MD Other X-Ray Diagnostic Results Other X-Ray Diagnostic Results : X-Ray ordered: abd # of Views/Limited Vs Complete: 1 View Indication: Pain EP Interpretation: Yes Interpretation: nonspecific bowel gas, no sbo, other - stool Impression: No acute disease Electronically Signed by: Sean Morales MD Last Vital Signs Date Time Temp Pulse Resp B/P (MAP) Pulse Ox O2 Delivery O2 Flow Rate FiO2 04/23/17 21:45 100.0 97 21 110/68 99 Room Air Status: improved Disposition: HOME, SELF-CARE Condition: Improved Scripts Tramadol Hcl* (ULTRAM*) 50 Mg Tablet 50 MG ORAL Q6H Y for For Pain, #12 TAB 0 Refills Prov: Sean Morales M.D. 04/23/17 Ondansetron Odt* (ZOFRAN ODT*) 4 Mg Tab.rapdis 4 MG ORAL Q8H Y for Nausea & Vomiting, #6 TAB 1 Refill Prov: Sean Morales M.D. 04/23/17 Acetaminophen (Tylenol) 325 Mg Tablet 650 MG ORAL Q6H Y for Prn Pain/Headache/Temp > 101, #20 TAB 0 Refills Prov: Sean Morales M.D. 04/23/17 Sean Morales M.D. Apr 23, 2017 17:47
[2017-04-23 18:42] LABS: BASOPHILS % (AUTO) 1.6 % (0.0-2.0); HEMATOCRIT 46.5 % (42.0-52.0); HEMOGLOBIN 15.6 G/DL (14.2-18.0); LYMPHOCYTES % (AUTO) 9.4 % (20.0-45.0); MEAN CORPUSCULAR VOLUME 97 FL (80-99); MONOCYTES % (AUTO) 6.5 % (1.0-10.0); NEUTROPHILS % (AUTO) 78.5 % (45.0-75.0); PLATELET COUNT 252 K/UL (150-450); RED BLOOD COUNT 4.78 M/UL (4.70-6.10); WHITE BLOOD COUNT 5.1 K/UL (4.8-10.8)
[2017-04-23 19:00] VITALS: BP 105/63
[2017-04-23 19:01] LABS: ANION GAP 10 mmol/L (5-15); BLOOD UREA NITROGEN 16 mg/dL (7-18); CARBON DIOXIDE 27 MMOL/L (21-32); CHLORIDE 101 MMOL/L (98-107); POTASSIUM 3.7 MMOL/L (3.5-5.1); SODIUM 138 MMOL/L (136-145)
[2017-04-23 19:06] LABS: ALANINE AMINOTRANSFERASE 25 U/L (12-78); ALBUMIN 3.9 G/DL (3.4-5.0); ALBUMIN/GLOBULIN RATIO 0.9 (1.0-2.7); ALKALINE PHOSPHATASE 75 U/L (46-116); ASPARTATE AMINO TRANSFERASE 51 U/L (15-37); BILIRUBIN,TOTAL 0.5 MG/DL (0.2-1.0); CREATINE KINASE 373 U/L (26-308)
[2017-04-23 20:21] LABS: APPEARANCE,URINE CLEAR; BILIRUBIN, URINE NEGATIVE (NEGATIVE); GLUCOSE, URINE (UA) NEGATIVE (NEGATIVE); KETONES,URINE NEGATIVE (NEGATIVE); LEUKOCYTE ESTERASE ,URINE 1+ (NEGATIVE); NITRITE,URINE NEGATIVE (NEGATIVE); PH,URINE 8 (4.5-8.0); PROTEIN,URINE NEGATIVE (NEGATIVE); UROBILINOGEN,URINE 1 MG/DL (0.0-1.0)
[2017-04-23 20:37] LABS: COLOR,URINE YELLOW
[2017-04-23] MEDS ORDERED: TYLENOL325 MG ORAL (20:52)
[2017-04-23] MEDS ORDERED: TRAMADOL HCL50 MG ORAL (20:52)
[2017-04-23] MEDS ORDERED: ZOFRAN ODT4 MG ORAL (20:52)
[2017-04-23] MEDS ORDERED: traMADol 50mg tab ORAL ONE (21:00)
[2017-04-23 21:40] VITALS: BP 110/68
[2017-04-23 21:45] VITALS: BP 110/68
--- NOTE | 2017-04-24 12:07 | Diagnostic Imaging Report ---
Indication: Chest pain Technique: One view of the chest Comparison: 01/25/2017 Findings: Suboptimal inspiration. Left basilar atelectasis. Lungs and pleural spaces otherwise clear. Right-sided aortic arch again demonstrated Impression: No acute process Incidental finding right-sided aortic arch. This agrees with the preliminary interpretation provided by the emergency room physician
--- NOTE | 2017-04-24 12:13 | Diagnostic Imaging Report ---
Indication: Abdominal pain Technique: Supine view of the abdomen Comparison: none Findings: Unremarkable bowel gas pattern. No unusual masses or calcifications. The bones are unremarkable Impression: No acute process. This agrees with the preliminary interpretation provided by the emergency room physician
== END 2017-04-23 21:45 | disposition home or self-care (01) ==
LOC: EMR 17:35
DX: K52.9 Noninfective gastroenteritis and colitis, unspecified (principal); E78.5 Hyperlipidemia, unspecified; K21.9 Gastro-esophageal reflux disease without esophagitis; Z88.8 Allergy status to other drugs, medicaments and biological substances
CPT/HCPCS: 36415; 71045; 74018; 80053; 80307; 81003; 82550; 83605; 83690; 85025; 85610; 85730; 96361; 96374; 99284; G0480; J2405; 80329

== ENCOUNTER 2017-08-02 15:11 | Emergency (ER) | payer MEDICARE, OTHER ==
[~2017-08-02] VITALS: Ht 185.4 cm; Wt 85.3 kg
[~2017-08-02 15:11] MED LIST changes: +TRAMADOL HCL50 MG ORAL; +TYLENOL325 MG ORAL; +ZOFRAN ODT4 MG ORAL
[2017-08-02 15:45] VITALS: BP 119/82
--- NOTE | 2017-08-02 16:09 | Emergency Room Report ---
History of Present Illness General Chief Complaint: Upper Respiratory Illness Source: Patient Present Illness HPI pt is a 36 y.o. M with no sig pmhx, here c/o 5 days of dry productive cough and sore throat. denies fever/chills, ear pain, sinus pressure. pt c/o scant amount of green mucus. denies SOB, hx of ashtma. pt has been taking Nyquil with no improvement. denies SOB, CP, palpitation, HINES. mentions his chest feels burning post tussive. denies CP when not coughing. Allergies: Coded Allergies: DIPHENHYDRAMINE (Verified Allergy, Unknown, 04/23/17) Patient History Past Medical History: see triage record Past Surgical History: none Pertinent Family History: none Reviewed Nursing Documentation: PMH: Agreed; PSxH: Agreed Nursing Documentation-PMH Hx Hypertension: Yes - Hyperlipidemia Hx Gastrointestinal Problems: Yes - GERD Review of Systems All Other Systems: negative except mentioned in HPI Physical Exam Vital Signs Date Time Temp Pulse Resp B/P (MAP) Pulse Ox O2 Delivery O2 Flow Rate FiO2 08/02/17 15:35 98.3 75 18 119/82 96 Room Air 98.2 Sp02 EP Interpretation: reviewed, normal General Appearance: no apparent distress, alert, GCS 15, non-toxic Head: normocephalic, atraumatic Eyes: bilateral eye normal inspection, bilateral eye PERRL ENT: hearing grossly normal, normal pharynx, no angioedema, normal voice Neck: full range of motion, supple, other - ant cervical lymphadenopathy Respiratory: normal inspection, chest non-tender, lungs clear, normal breath sounds, no rhonchi, no respiratory distress, no retraction, no accessory muscle use, no wheezing, speaking full sentences Cardiovascular #1: normal inspection, normal peripheral pulses, regular rate, rhythm, no edema Cardiovascular #2: 2+ carotid (R), 2+ carotid (L), 2+ radial (R), 2+ radial (L) , 2+ dorsalis pedis (R), 2+ dorsalis pedis (L) Gastrointestinal: normal bowel sounds, non tender, soft, non-distended, no guarding, no rebound Rectal: deferred Musculoskeletal: normal inspection Neurologic: alert, oriented x3, responsive, motor strength/tone normal, sensory intact, speech normal Psychiatric: judgement/insight normal, memory normal, mood/affect normal, no suicidal/homicidal ideation Skin: normal color, no rash, warm/dry, well hydrated Lymphatic: adenopathy - ant cervical Medical Decision Making PA Attestation is my supervising Physician whom patient management has been discussed with. Reaction to Intervention: Improved Diagnostic Impression: Primary Impression: Upper respiratory infection Qualified Codes: J02.0 - Streptococcal pharyngitis Additional Impression: Cough ER Course pt is a 36 y.o. M with no sig pmhx, here c/o 5 days of dry productive cough and sore throat. denies fever/chills, ear pain, sinus pressure. pt c/o scant amount of green mucus. denies SOB, hx of ashtma. pt has been taking Nyquil with no improvement. denies SOB, CP, palpitation, HINES. mentions his chest feels burning post tussive. denies CP when not coughing. Ddx considered but are not limited to bronchitis, influenza, PNA Vital signs: are WNL, pt. is afebrile H&PE are most consistent with strep pharyngitis ORDERS: none required at this time, the diagnosis is clinical ED INTERVENTIONS: None required at this time. DISCHARGE: At this time pt. is stable for d/c to home. Will provide printed patient care instructions, and any necessary prescriptions. Care plan and follow up instructions have been discussed with the patient prior to discharge. Last Vital Signs Date Time Temp Pulse Resp B/P (MAP) Pulse Ox O2 Delivery O2 Flow Rate FiO2 08/02/17 15:45 98.2 75 18 119/82 96 Room Air 98.2 Disposition: HOME, SELF-CARE Condition: Stable Scripts Benzonatate* (TESSALON PERLE*) 100 Mg Capsule 100 MG ORAL THREE TIMES A DAY for 5 Days, #15 PERLE Prov: Sahelimoghavami,Nahal P.A. 08/02/17 Azithromycin* (ZITHROMAX*) 250 Mg Tablet 250 MG ORAL DAILY for 5 Days, #6 TAB 0 Refills Take two tables once daily for 1 day, then one tablet once daily for 4 days. Prov: Serjioelimoghavami,Nahal P.A. 08/02/17 Additional Instructions: Take medications as directed. Follow up with a Primary Care Provider in 3-5 days, even if your symptoms have resolved. --Please review list of primary care clinics, if you do not already have a primary care provider Return sooner to ED if new symptoms occur, or current symptoms become worse. Do not drink alcohol, drive, or operate heavy machinery while taking [ ] as this may cause drowsiness. Radha Arteaga Aug 02, 2017 16:09
[2017-08-02] MEDS ORDERED: ZITHROMAX250 MG ORAL (16:14)
[2017-08-02] MEDS ORDERED: TESSALON PERLE100 MG ORAL (16:14)
[2017-08-02 16:32] VITALS: BP 119/82
== END 2017-08-02 16:30 | disposition home or self-care (01) ==
LOC: EMR 15:47
DX: J06.9 Acute upper respiratory infection, unspecified (principal); K21.9 Gastro-esophageal reflux disease without esophagitis; E78.5 Hyperlipidemia, unspecified; Z88.8 Allergy status to other drugs, medicaments and biological substances
CPT/HCPCS: 99284

== ENCOUNTER 2017-08-17 20:36 | Emergency (ER) | payer MEDICARE, OTHER ==
[~2017-08-17] VITALS: Ht 182.9 cm; Wt 81.6 kg
[~2017-08-17 20:36] MED LIST changes: +TESSALON PERLE100 MG ORAL; +ZITHROMAX250 MG ORAL
[2017-08-17] MEDS ORDERED: Bacitracin Oint UD TOPIC ONE (21:15)
[2017-08-17 21:38] LABS: APPEARANCE,URINE CLEAR; BILIRUBIN, URINE NEGATIVE (NEGATIVE); COLOR,URINE PALE YELLOW; GLUCOSE, URINE (UA) NEGATIVE (NEGATIVE); KETONES,URINE NEGATIVE (NEGATIVE); LEUKOCYTE ESTERASE ,URINE NEGATIVE (NEGATIVE); NITRITE,URINE NEGATIVE (NEGATIVE); PH,URINE 6 (4.5-8.0); PROTEIN,URINE NEGATIVE (NEGATIVE); UROBILINOGEN,URINE NORMAL MG/DL (0.0-1.0)
--- NOTE | 2017-08-17 21:50 | Emergency Room Report ---
History of Present Illness General Chief Complaint: Back Pain-No Injury Source: Patient Present Illness [facility] This 36-year-old male came in with 2 complaints. His first complaint is I have kidney pain. He complaining of feeling uncomfortable to his lower back has been ongoing for a week. No trauma. No fever chills but no nausea no vomiting. No diaphoresis. No urinary complaint. Second complaint is he has a puncture wound from a armani forde to his left ring finger. Onset this morning. No fever chills but no nausea no vomiting. He said he read online and it may be infected if it doesn't get treated. Allergies: Coded Allergies: DIPHENHYDRAMINE (Verified Allergy, Unknown, 04/23/17) Patient History Past Medical History: see triage record, old chart reviewed Past Surgical History: none Pertinent Family History: none Social History: Denies: smoking Immunizations: other Reviewed Nursing Documentation: PMH: Agreed; PSxH: Agreed Nursing Documentation-PMH Hx Hypertension: Yes - Hyperlipidemia Hx Gastrointestinal Problems: Yes - GERD Review of Systems Eye: Denies: eye pain, blurred vision ENT: Denies: ear pain, nose congestion, throat swelling Respiratory: Denies: cough, shortness of breath Cardiovascular: Denies: chest pain, palpitations Gastrointestinal: Denies: abdominal pain, diarrhea, nausea, vomiting Musculoskeletal: Reports: back pain; Denies: joint pain Skin: Denies: rash Neurological: Denies: headache, numbness Endocrine: Denies: increased thirst, increased urine Hematologic/Lymphatic: Denies: easy bruising All Other Systems: negative except mentioned in HPI Physical Exam Vital Signs Date Time Temp Pulse Resp B/P (MAP) Pulse Ox O2 Delivery O2 Flow Rate FiO2 08/17/17 20:56 97.4 75 16 124/86 99 Room Air 97.3 vitals normal Sp02 EP Interpretation: reviewed, normal General Appearance: well appearing, no apparent distress, alert Head: normocephalic, atraumatic Eyes: bilateral eye PERRL, bilateral eye EOMI ENT: hearing grossly normal, normal pharynx Neck: full range of motion, supple, no meningismus Respiratory: chest non-tender, lungs clear, normal breath sounds Cardiovascular #1: regular rate, rhythm, no murmur Gastrointestinal: normal bowel sounds, non tender, no mass, no organomegaly, no bruit, non-distended Musculoskeletal: back normal, gait/station normal, normal range of motion Psychiatric: mood/affect normal Skin: warm/dry Medical Decision Making Diagnostic Impression: Primary Impression: Back pain Qualified Codes: M54.5 - Low back pain Additional Impression: Puncture wound of finger of left hand Qualified Codes: S61.239A - Puncture wound without foreign body of unspecified finger without damage to nail, initial encounter ER Course This patient presents with complaining of back pain. He is sitting comfortably without any problem. No evidence of any kidney issue. Urine negative. We'll discharge home. No evidence of any infection to his finger. Last Vital Signs Date Time Temp Pulse Resp B/P (MAP) Pulse Ox O2 Delivery O2 Flow Rate FiO2 08/17/17 20:56 97.4 75 16 124/86 99 Room Air 97.3 Status: unchanged Disposition: HOME, SELF-CARE Condition: Stable Scripts Cephalexin* (KEFLEX*) 500 Mg Capsule 500 MG ORAL TID, #21 CAP 0 Refills Prov: ASHOK SAUCEDA M.D. 08/17/17 Ibuprofen* (MOTRIN*) 600 Mg Tablet 600 MG ORAL Q8H PRN for For Pain, #30 TAB 0 Refills Prov: ASHOK SAUCEDA M.D. 08/17/17 Referrals: NON PHYSICIAN (PCP) Patient Instructions: Back Pain, Adult Additional Instructions: Follow-up with your doctor in 7 days. Return if worse. ASHOK SAUCEDA M.D. Aug 17, 2017 21:50
[2017-08-17] MEDS ORDERED: KEFLEX500 MG ORAL (21:53)
[2017-08-17] MEDS ORDERED: IBUPROFEN600 MG ORAL (21:53)
[2017-08-17 22:00] VITALS: BP 0/0
[2017-08-17 22:05] VITALS: BP 0/0
== END 2017-08-17 22:05 | disposition home or self-care (01) ==
LOC: EMR 21:18
DX: M54.5 Low back pain (principal); S61.239A Puncture wound without foreign body of unspecified finger without damage to nail, initial encounter; W60.XXXA Contact with nonvenomous plant thorns and spines and sharp leaves, initial encounter; Y92.9 Unspecified place or not applicable; Z88.8 Allergy status to other drugs, medicaments and biological substances; K21.9 Gastro-esophageal reflux disease without esophagitis; E78.5 Hyperlipidemia, unspecified; I10 Essential (primary) hypertension
CPT/HCPCS: 81003; 99284

== ENCOUNTER 2017-11-08 12:53 | Emergency (ER) | payer MEDICARE, OTHER ==
[~2017-11-08] VITALS: Ht 182.9 cm; Wt 85.3 kg
[2017-11-08 14:00] VITALS: BP 131/78
--- NOTE | 2017-11-08 14:10 | Emergency Room Report ---
History of Present Illness General Chief Complaint: General Complaint Source: Patient Present Illness HPI 37-year-old male patient presents ER complaining of general weakness and hunger for the past few days. Also complaining allergy symptoms during this time. Reports he has been more hungry eating the same amount. Reports that he has felt weakness during this time. Reports history of HIV, states last time he was tested viral load was undetectable. Denies fever, chest pain, shortness breath, abdominal pain, vomiting, diarrhea. Denies other acute symptoms. Denies night sweats. Denies recent drug use. Allergies: Coded Allergies: DIPHENHYDRAMINE (Verified Allergy, Unknown, 04/23/17) Patient History Reviewed Nursing Documentation: PMH: Agreed; PSxH: Agreed Nursing Documentation-PMH Past Medical History: No History, Except For Hx Hypertension: Yes - Hyperlipidemia Hx Gastrointestinal Problems: Yes - GERD Review of Systems All Other Systems: negative except mentioned in HPI Physical Exam Vital Signs Date Time Temp Pulse Resp B/P (MAP) Pulse Ox O2 Delivery O2 Flow Rate FiO2 11/08/17 13:15 98.5 65 18 126/84 97 Room Air 98.4 Sp02 EP Interpretation: reviewed, normal General Appearance: well appearing, no apparent distress, alert, GCS 15, non- toxic Head: normocephalic, atraumatic, other - no frontal or maxillary sinus TTP Eyes: bilateral eye normal inspection, bilateral eye PERRL ENT: hearing grossly normal, normal pharynx, no angioedema, normal voice, TMs + canals normal, uvula midline, moist mucus membranes, nasal congestion Neck: full range of motion Respiratory: lungs clear, normal breath sounds, no rhonchi, no respiratory distress, no accessory muscle use, no wheezing, speaking full sentences Cardiovascular #1: regular rate, rhythm, no edema Gastrointestinal: non tender, soft, no mass, non-distended, no guarding, no rebound Genitourinary: no CVA tenderness Musculoskeletal: back normal, digits/nails normal, gait/station normal, normal range of motion, non-tender Neurologic: alert, oriented x3, responsive, plastics tooling engineer III-XII nml as tested, motor strength/tone normal, SLR negative, sensory intact, cerebellar normal, normal gait, speech normal Skin: no rash Lymphatic: no adenopathy Medical Decision Making PA Attestation Dr. Jack is my supervising Physician whom patient management has been discussed with. Diagnostic Impression: Primary Impression: Allergic sinusitis Additional Impression: Generalized weakness ER Course Pt. presents to the ED c/o generalized weakness, increased hunger and allergy symptoms. History of HIV. Multiple differentials considered. Vital signs: are WNL, pt. is afebrile ER COURSE: cranial nerves intact assessment, no focal neuro deficits, able to ambulate without difficulty. CBC and CMP unremarkable, mild decrease noted WBCs, likely secondary to history of HIV. Elevated eosinophil percentage likely due to allergy symptoms. chest x-ray negative for acute disease, consistent with previous chest x-rays. Informed patient that generalized weakness may be related to increased hunger symptoms, if patient is hungry eat more food and that may help with symptom relief. Nasal congestion noted on physical exam, will provide fluticasone at discharge. Discharged patient to continue taking current medications as needed for symptom relief. Patient does not require admission or further workup at this time. lungs clear to auscultation, non erythematous TMs bilaterally, no pharyngeal erythema or tonsillar exudates, no uvular deviation or stridor, remainder of physical exam benign. Follow-up with primary care provider and infectious disease doctor for further evaluation and treatment continue to monitor viral load and CD4 levels, discussed with PCP. Don't smoke or Use Drugs. patient okay for discharge to home. DISCHARGE: Rx provided for Fluticasone At this time pt is stable for d/c to home. Patient is resting comfortably, in no acute distress, nontoxic appearing, talking without difficulty. Patient to take medications as instructed Will provide with patient care instructions and any necessary prescriptions. Care plan and follow-up instructions provided. Patient instructed to follow-up with primary care provider in 3 - 5 days. Patient questions asked and answered. Patient reports understanding and agreement to treatment plan. ER precautions given. Patient instructed to return to ER immediately for any new or worsening of symptoms including but not limited to increasing SOB, persistent fever, chest pain, intractable vomiting. - Please note that this Emergency Department Report was dictated using [employer] Stylesupervisor inspecting technology software, occasionally this can lead to erroneous entry secondary to interpretation by the dictation equipment. Labs Test 11/08/17 13:55 White Blood Count 4.4 K/UL (4.8-10.8) Red Blood Count 5.06 M/UL (4.70-6.10) Hemoglobin 16.0 G/DL (14.2-18.0) Hematocrit 47.3 % (42.0-52.0) Mean Corpuscular Volume 93 FL (80-99) Mean Corpuscular Hemoglobin 31.6 PG (27.0-31.0) Mean Corpuscular Hemoglobin Concent 33.8 G/DL (32.0-36.0) Red Cell Distribution Width 11.6 % (11.6-14.8) Platelet Count 248 K/UL (150-450) Mean Platelet Volume 6.4 FL (6.5-10.1) Neutrophils (%) (Auto) 38.6 % (45.0-75.0) Lymphocytes (%) (Auto) 39.1 % (20.0-45.0) Monocytes (%) (Auto) 7.9 % (1.0-10.0) Eosinophils (%) (Auto) 12.7 % (0.0-3.0) Basophils (%) (Auto) 1.8 % (0.0-2.0) Urine Color Pale yellow Urine Appearance Cloudy Urine pH 7 (4.5-8.0) Urine Specific [place] 1.005 (1.005-1.035) Urine Protein Negative (NEGATIVE) Urine Glucose (UA) Negative (NEGATIVE) Urine Ketones Negative (NEGATIVE) Urine Occult Blood Negative (NEGATIVE) Urine Nitrite Negative (NEGATIVE) Urine Bilirubin Negative (NEGATIVE) Urine Urobilinogen Normal MG/DL (0.0-1.0) Urine Leukocyte Esterase 1+ (NEGATIVE) Urine RBC 0-2 /HPF (0 - 0) Urine WBC 0-2 /HPF (0 - 0) Urine Squamous Epithelial Cells Occasional /LPF Urine Bacteria Few /HPF (NONE) Sodium Level 139 MMOL/L (136-145) Potassium Level 3.9 MMOL/L (3.5-5.1) Chloride Level 104 MMOL/L (98-107) Carbon Dioxide Level 29 MMOL/L (21-32) Anion Gap 6 mmol/L (5-15) Blood Urea Nitrogen 15 mg/dL (7-18) Creatinine 1.0 MG/DL (0.55-1.30) Estimat Glomerular Filtration Rate > 60 mL/min (>60) Glucose Level 77 MG/DL (74-106) Calcium Level 9.1 MG/DL (8.5-10.1) Total Bilirubin 0.4 MG/DL (0.2-1.0) Aspartate Amino Transf (AST/SGOT) 31 U/L (15-37) Alanine Aminotransferase (ALT/SGPT) 25 U/L (12-78) Alkaline Phosphatase 64 U/L (46-116) Total Protein 8.0 G/DL (6.4-8.2) Albumin 3.6 G/DL (3.4-5.0) Globulin 4.4 g/dL Albumin/Globulin Ratio 0.8 (1.0-2.7) Salicylates Level 0.4 ug/mL (2.8-20) Urine Opiates Screen Negative (NEGATIVE) Acetaminophen Level < 2 MCG/ML (10-30) Urine Barbiturates Screen Negative (NEGATIVE) Phencyclidine (PCP) Screen Negative (NEGATIVE) Urine Amphetamines Screen Negative (NEGATIVE) Urine Benzodiazepines Screen Negative (NEGATIVE) Urine Cocaine Screen Negative (NEGATIVE) Urine Marijuana (THC) Screen Negative (NEGATIVE) Serum Alcohol < 3 mg/dL Chest X-Ray Diagnostic Results Chest X-Ray Diagnostic Results : Chest X-Ray Ordered: Yes # of Views/Limited/Complete: 1 View Indication: Chest Pain EP Interpretation: Yes PA Xray: Interpretation reviewed, by supervising MD, and agrees with findings. Interpretation: no consolidation, no effusion, no pneumothorax Impression: No acute disease JOCELYN Scribchristopher Text Rinku Mckenna PA-C Last Vital Signs Date Time Temp Pulse Resp B/P (MAP) Pulse Ox O2 Delivery O2 Flow Rate FiO2 11/08/17 14:00 98.4 98 15 131/78 99 Room Air 98.4 Disposition: HOME, SELF-CARE Condition: Stable Scripts Fluticasone Propionate* (FLUTICASONE PROPIONATE*) 16 Gm [place].susp 1 SPRAY NASAL TWICE A DAY, #16 GM Prov: Dakota Mckenna 11/08/17 Referrals: NON PHYSICIAN (PCP) Patient Instructions: Allergies, [id number], Sinusitis, Adult, [id number], Weakness, [id number] Additional Instructions: Followup with primary care provider in 3 -5 days. Follow-up with infectious disease doctor to discuss further labs and evaluation. Take medications as directed. Patient questions asked and answered. ER precautions given, patient instructed to return to ER immediately for any new or worsening of symptoms including but not limited to intractable vomiting, chest pain, shortness of breath, abdominal pain, syncope. Dakota Mckenna Nov 08, 2017 14:10
[2017-11-08 14:15] LABS: APPEARANCE,URINE CLOUDY; BILIRUBIN, URINE NEGATIVE (NEGATIVE); COLOR,URINE PALE YELLOW; GLUCOSE, URINE (UA) NEGATIVE (NEGATIVE); KETONES,URINE NEGATIVE (NEGATIVE); LEUKOCYTE ESTERASE ,URINE 1+ (NEGATIVE); NITRITE,URINE NEGATIVE (NEGATIVE); PH,URINE 7 (4.5-8.0); PROTEIN,URINE NEGATIVE (NEGATIVE); UROBILINOGEN,URINE NORMAL MG/DL (0.0-1.0)
[2017-11-08 14:17] LABS: BASOPHILS % (AUTO) 1.8 % (0.0-2.0); EOSINOPHILS % (AUTO) 12.7 % (0.0-3.0); HEMATOCRIT 47.3 % (42.0-52.0); LYMPHOCYTES % (AUTO) 39.1 % (20.0-45.0); MEAN CORPUSCULAR VOLUME 93 FL (80-99); MONOCYTES % (AUTO) 7.9 % (1.0-10.0); NEUTROPHILS % (AUTO) 38.6 % (45.0-75.0); PLATELET COUNT 248 K/UL (150-450); RED BLOOD COUNT 5.06 M/UL (4.70-6.10); RED CELL DISTRIBUTION WIDTH 11.6 % (11.6-14.8); WHITE BLOOD COUNT 4.4 K/UL (4.8-10.8)
[2017-11-08 14:36] LABS: ANION GAP 6 mmol/L (5-15); BLOOD UREA NITROGEN 15 mg/dL (7-18); CALCIUM 9.1 MG/DL (8.5-10.1); CARBON DIOXIDE 29 MMOL/L (21-32); CHLORIDE 104 MMOL/L (98-107); POTASSIUM 3.9 MMOL/L (3.5-5.1); SODIUM 139 MMOL/L (136-145)
[2017-11-08 14:41] LABS: ALANINE AMINOTRANSFERASE 25 U/L (12-78); ALBUMIN 3.6 G/DL (3.4-5.0); ALBUMIN/GLOBULIN RATIO 0.8 (1.0-2.7); ALKALINE PHOSPHATASE 64 U/L (46-116); ASPARTATE AMINO TRANSFERASE 31 U/L (15-37); BILIRUBIN,TOTAL 0.4 MG/DL (0.2-1.0)
[2017-11-08] MEDS ORDERED: FLUTICASONE PRO16 G1 NASAL (15:20)
[2017-11-08 15:31] VITALS: BP 127/69
[2017-11-08 15:32] VITALS: BP 127/69
--- NOTE | 2017-11-08 15:56 | Diagnostic Imaging Report ---
Indication: Chest pain Technique: One view of the chest Comparison: 04/23/2017 Findings: Lungs and pleural spaces are clear. Heart size is normal. Right-sided aortic arch again demonstrated. No significant change Impression: No acute process
== END 2017-11-08 15:32 | disposition home or self-care (01) ==
LOC: EMR 13:35
DX: J30.9 Allergic rhinitis, unspecified (principal); R53.1 Weakness; I10 Essential (primary) hypertension; E78.5 Hyperlipidemia, unspecified; K21.9 Gastro-esophageal reflux disease without esophagitis
CPT/HCPCS: 36415; 71045; 80053; 80307; 81003; 85025; 99283; G0480; 80329

== ENCOUNTER 2018-01-05 08:31 | Emergency (ER) | payer MEDICARE, OTHER ==
[~2018-01-05] VITALS: Ht 185.4 cm; Wt 85.3 kg
[~2018-01-05 08:31] MED LIST changes: +FLUTICASONE PRO16 G1 NASAL
[2018-01-05] MEDS ORDERED: triumeq (08:45)
[2018-01-05] MEDS ORDERED: ACYCLOVIR200 MG/5 M ORAL (08:45)
[2018-01-05 08:56] VITALS: BP 134/79
[2018-01-05] MEDS ORDERED: IBUPROFEN600 MG ORAL (09:19)
[2018-01-05 10:26] VITALS: BP 134/79
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
== END 2018-01-05 10:29 | disposition home or self-care (01) ==
LOC: EMR 09:30
DX: T14.8XXA Other injury of unspecified body region, initial encounter (principal); M79.1 Myalgia; Y04.0XXA Assault by unarmed brawl or fight, initial encounter; Y92.098 Other place in other non-institutional residence as the place of occurrence of the external cause; E78.00 Pure hypercholesterolemia, unspecified; I10 Essential (primary) hypertension; Z88.8 Allergy status to other drugs, medicaments and biological substances
CPT/HCPCS: 99283

== ENCOUNTER 2018-01-12 13:41 | Emergency (ER) | payer MEDICARE, OTHER ==
[~2018-01-12] VITALS: Ht 185.4 cm; Wt 85.3 kg
[~2018-01-12 13:41] MED LIST changes: +ACYCLOVIR200 MG/5 M ORAL; +triumeq
[2018-01-12 13:47] VITALS: BP 134/83
[2018-01-12] MEDS ORDERED: CLOTRIMAZOLE15 GM TOPIC (14:05)
--- NOTE | 2018-01-12 14:05 | Emergency Room Report ---
History of Present Illness General Chief Complaint: Skin Rash/Abscess Source: Patient Present Illness HPI 37-year-old male patient presents to ER complaining of rash on right sided inguinal region. Reports has been present for one week, states that his mildly irritating. Denies bleeding or erythema or drainage. Denies fever, chest pain , shortness of breath. Reports he is HIV positive, low viral load and CD4 count normal. Reports taking his medications as instructed. Reports previously been tested and treated for STI previously prior to onset of current symptoms. Denies dysuria, hematuria, penile discharge, testicular pain, testicular swelling. denies pain or burning sensation. Denies blisters or vesicles. Allergies: Coded Allergies: DIPHENHYDRAMINE (Verified Allergy, Unknown, 04/23/17) Patient History Past Medical History: see triage record Reviewed Nursing Documentation: PMH: Agreed; PSxH: Agreed Nursing Documentation-PMH Past Medical History: No History, Except For Hx Hypertension: Yes - Hyperlipidemia Hx Gastrointestinal Problems: Yes - GERD Review of Systems All Other Systems: negative except mentioned in HPI Physical Exam Vital Signs Date Time Temp Pulse Resp B/P (MAP) Pulse Ox O2 Delivery O2 Flow Rate FiO2 01/12/18 13:47 98.2 78 14 134/83 95 Room Air 98.2 Sp02 EP Interpretation: reviewed, normal General Appearance: well appearing, no apparent distress, alert, GCS 15, non- toxic Head: normocephalic, atraumatic Eyes: bilateral eye normal inspection, bilateral eye PERRL ENT: hearing grossly normal, normal pharynx, no angioedema, normal voice, uvula midline, moist mucus membranes Neck: full range of motion Respiratory: lungs clear, normal breath sounds, no rhonchi, no respiratory distress, no accessory muscle use, no wheezing, speaking full sentences Cardiovascular #1: regular rate, rhythm, no edema Genitourinary: penis normal Musculoskeletal: back normal, digits/nails normal, gait/station normal, normal range of motion, non-tender Psychiatric: mood/affect normal Skin: other - mildly erythematous rash with central clearing and scaling noted , satellite lesions noted surrounding skin area with scaling and central clearing, no surrounding erythema or edema, no target lesion Lymphatic: no adenopathy Medical Decision Making PA Attestation Dr. Hilario is my supervising Physician whom patient management has been discussed with. Diagnostic Impression: Primary Impression: Rash and other nonspecific skin eruption ER Course Pt. presents to the ED c/o rash on inguinal region. Ddx considered but are not limited to atopic dermatitis, scabies, shingles, hives, urticaria, tinea, syphilis, herpes, molluscum contagiosum. Vital signs: are WNL, pt. is afebrile ER COURSE physical exam consistent with likely tinea cruris, will provide patient with treatment. Follow-up with trucksmith. Keep area clean and dry. no vesicles or blisters, low suspicion for herpes contagiosum. No painless chancre, low suspicion for her syphilis. do not scratch or itch. Followup with dermatology. follow-up with STI clinic for testing and treatment. DISCHARGE: -Rx given for clotrimazole At this time pt. is stable for d/c to home. Patient resting comfortably, in no acute distress, nontoxic appearinge. Will provide printed patient care instructions, and any necessary prescriptions. Care plan and follow up instructions have been discussed with the patient prior to discharge. Patient provided with list of healthcare clinics to establish primary care physician. Patient instructed to follow-up with primary care provider in 3 - 5 days. Patient questions asked and answered. ER precautions given. Patient instructed to return to ER immediately for any new or worsening of symptoms including but not limited to increasing SOB, persistent fever. - Please note that this Emergency Department Report was dictated using Joy[employer]upervisor hanging and trimming technology software, occasionally this can lead to erroneous entry secondary to interpretation by the dictation equipment. Last Vital Signs Date Time Temp Pulse Resp B/P (MAP) Pulse Ox O2 Delivery O2 Flow Rate FiO2 01/12/18 13:47 98.2 78 14 134/83 95 Room Air 98.2 Disposition: HOME, SELF-CARE Condition: Stable Scripts Clotrimazole* (LOTRIMIN*) 15 Gm Cream..g. 1 APPLIC TOPIC TWICE A DAY for 14 Days, #15 GM Prov: Dakota Mckenna 01/12/18 Patient Instructions: Jock Itch, Vati-[id number], Personal Hygiene Additional Instructions: Followup with primary care provider in 3 -5 days. Request referral to dermatology. Follow-up with STI clinic or PCP for testing and treatment. Do not scratch or itch. Apply cool compresses to affected area. Take medications as directed. Do not apply medication to face. Patient questions asked and answered. ER precautions given, patient instructed to return to ER immediately for any new or worsening of symptoms. [facility] Dakota Mckenna Jan 12, 2018 14:05
[2018-01-12 15:41] VITALS: BP 134/83
== END 2018-01-12 14:10 | disposition home or self-care (01) ==
LOC: EMR 14:00
DX: R21 Rash and other nonspecific skin eruption (principal); E78.5 Hyperlipidemia, unspecified; K21.9 Gastro-esophageal reflux disease without esophagitis
CPT/HCPCS: 99282

== ENCOUNTER 2018-02-01 12:20 | Emergency (ER) | payer MEDICARE, OTHER ==
[~2018-02-01] VITALS: Ht 193 cm; Wt 85.3 kg
[~2018-02-01 12:20] MED LIST changes: +CLOTRIMAZOLE15 GM TOPIC
[2018-02-01 12:30] VITALS: BP 125/78
[2018-02-01] MEDS ORDERED: Lidocaine 2% Visc 15ml soln ORAL ONE (13:00)
[2018-02-01] MEDS ORDERED: Mylanta II UD 30ml ORAL ONE (13:00)
--- NOTE | 2018-02-01 13:28 | Diagnostic Imaging Report ---
EXAM: XR Abdomen, 2 Views CLINICAL HISTORY: PAIN TECHNIQUE: Frontal view of the abdomen/pelvis with upright view of the abdomen. COMPARISON: Abdominal x-rays dated 05/11/17 FINDINGS: Intraperitoneal space: No visible free air under the diaphragm. Gastrointestinal tract: Mild diffuse colonic fecal retention, suggestive of constipation. Bowel gas pattern is otherwise unremarkable. No evidence of pneumatosis intestinalis. Organs: Renal shadows are partially obscured by overlying bowel gas. Bones/joints: Unremarkable. Vasculature: Subcentimeter radiodensities in the pelvis bilaterally likely represent phleboliths. IMPRESSION: Mild diffuse fecal retention, suggestive of constipation.
--- NOTE | 2018-02-01 14:01 | Emergency Room Report ---
History of Present Illness General Chief Complaint: Abdominal Pain Source: Patient, Medical Record Present Illness HPI 37 YO Male presents to the ED Complaining of 10 out of 10 in severity localized epigastric pain that he describes as a burning sensation since yesterday. Patient reports that he notices his pain is worse after eating. Patient states he attempted to relieve his symptoms with Tylenol however it provided him no relief. Patient denies nausea vomiting fevers, chills, blood in the stool or black tarry stools. He denies history of acid reflux. He reports that he is HIV positive and is taking his medications regularly. He states that his viral load is undetectable. He states he is not sure when his last CD4 count was however she states it is usually normal. patient reports dates he does not know when his last bowel movement was he reports it's been several days. Denies urinary symptoms. Denies CP, Palpitations, LOC, AMS, dizziness, Changes in Vision, Sensation, paresthesias, or a sudden severe headache. Allergies: Coded Allergies: DIPHENHYDRAMINE (Verified Allergy, Unknown, 02/01/18) Patient History Past Medical History: see triage record, HIV Past Surgical History: none Pertinent Family History: none Reviewed Nursing Documentation: PMH: Agreed; PSxH: Agreed Nursing Documentation-PMH Hx Cardiac Problems: No - HIV Hx Hypertension: Yes - Hyperlipidemia Hx Gastrointestinal Problems: Yes - GERD Review of Systems All Other Systems: negative except mentioned in HPI Physical Exam Vital Signs Date Time Temp Pulse Resp B/P (MAP) Pulse Ox O2 Delivery O2 Flow Rate FiO2 02/01/18 12:30 98.1 86 16 121/77 96 Room Air 98.1 Sp02 EP Interpretation: reviewed, normal General Appearance: well appearing, no apparent distress, alert, GCS 15, non- toxic, thin Head: normocephalic, atraumatic Eyes: bilateral eye normal inspection, bilateral eye PERRL ENT: hearing grossly normal, normal voice Neck: full range of motion Respiratory: chest non-tender, lungs clear, normal breath sounds, no respiratory distress, no wheezing, speaking full sentences Cardiovascular #1: regular rate, rhythm, no edema Gastrointestinal: normal bowel sounds, soft, non-distended, no guarding, tenderness - localized epigastric TTP Rectal: deferred Genitourinary: normal inspection, no CVA tenderness Musculoskeletal: back normal, gait/station normal, normal range of motion, non- tender Neurologic: alert, oriented x3, responsive, motor strength/tone normal, sensory intact, normal gait, speech normal, grossly normal Psychiatric: judgement/insight normal Skin: normal color, no rash, warm/dry, well hydrated Medical Decision Making PA Attestation Dr. Clark is my supervising Physician whom patient management has been discussed with. Diagnostic Impression: Primary Impression: Abdominal pain Qualified Codes: R10.13 - Epigastric pain ER Course 37 YO Male presents to the ED Complaining of 10 out of 10 in severity localized epigastric pain that he describes as a burning sensation since yesterday. Patient reports that he notices his pain is worse after eating. Patient states he attempted to relieve his symptoms with Tylenol however it provided him no relief. Patient denies nausea vomiting fevers, chills, blood in the stool or black tarry stools. He denies history of acid reflux. He reports that he is HIV positive and is taking his medications regularly. He states that his viral load is undetectable. He states he is not sure when his last CD4 count was however she states it is usually normal. patient reports dates he does not know when his last bowel movement was he reports it's been several days. Denies urinary symptoms. Denies CP, Palpitations, LOC, AMS, dizziness, Changes in Vision, Sensation, paresthesias, or a sudden severe headache. Ddx considered but are not limited to GE, colitis, acute appy, SBO, H.pylori, Gastritis, PNA, pericarditis just to name a few. Vital signs: pt. is afebrile, H&PE are most consistent with Gastritis - no evidence to suggest acute abdomen on physical exam. Pt. is non-toxic in appearance, demonstrates pain but does not appear in acute distress. ORDERS: -KUB: Unremarkable ED INTERVENTIONS: -Mylanta PO -Lidocaine PO -Pepcid PO - D/w pt. radiological findings. He states his pain has improved after ED interventions. -I do not identify an emergent condition at this time. With current presentation , pt. is stable for close outpatient follow up and conservative treatment. D/ w pt. to return promptly to ED with worsening or new symptoms.- Pt. verbalizes' understanding and agreement with proposed treatment plan.proposed treatment plan. DISCHARGE: At this time pt. is stable for d/c to home. Will provide printed patient care instructions, and any necessary prescriptions. Care plan and follow up instructions have been discussed with the patient prior to discharge. Other X-Ray Diagnostic Results Other X-Ray Diagnostic Results : X-Ray ordered: KUB # of Views/Limited Vs Complete: 1 View Indication: Pain EP Interpretation: Yes JOCELYN Xray: Interpretation reviewed, by supervising MD, and agrees with findings. Interpretation: nonspecific bowel gas, no sbo Impression: No acute disease Electronically Signed by: Radha Catalan PA-C Last Vital Signs Date Time Temp Pulse Resp B/P (MAP) Pulse Ox O2 Delivery O2 Flow Rate FiO2 02/01/18 12:30 98.1 74 16 125/78 95 Room Air 98.1 Disposition: HOME, SELF-CARE Condition: Stable Scripts Omeprazole (OMEPRAZOLE) 20 Mg Tablet.dr 20 MG ORAL DAILY, #20 TAB Prov: Radha Catalan 02/01/18 Mag Hydrox/Al Hydrox/Simeth (ALUM-MAG HYDROXIDE-SIMETH LIQ) 360 Ml Oral.susp 30 ML PO BID, #360 ML Prov: Radha Catalan 02/01/18 Docusate Sodium* (COLACE*) 100 Mg Capsule 100 MG ORAL THREE TIMES A DAY, #30 CAP Prov: Radha Catalan 02/01/18 Referrals: NON PHYSICIAN (PCP) Patient Instructions: Abdominal Pain, Adult, Constipation, Adult, [id number] Additional Instructions: Take medications as directed. Follow up with a Primary Care Provider in 3-5 days, even if your symptoms have resolved. --Please review list of primary care clinics, if you do not already have a primary care provider Return sooner to ED if new symptoms occur, or current symptoms become worse. - Please note that this Emergency Department Report was dictated using [employer] technology software, occasionally this can lead to erroneous entry secondary to interpretation by the dictation equipment. Radha Catalan Feb 01, 2018 14:01
[2018-02-01] MEDS ORDERED: OMEPRAZOLE20 M3 ORAL (14:04)
[2018-02-01] MEDS ORDERED: ALUM-MAG HYDRO360 ML PO (14:04)
[2018-02-01] MEDS ORDERED: COLACE100 MG ORAL (14:04)
[2018-02-01 14:16] VITALS: BP 128/82
[2018-02-01 14:17] VITALS: BP 128/72
== END 2018-02-01 14:17 | disposition home or self-care (01) ==
LOC: EMR 13:01
DX: R10.13 Epigastric pain (principal); E78.5 Hyperlipidemia, unspecified; K21.9 Gastro-esophageal reflux disease without esophagitis; Z21 Asymptomatic human immunodeficiency virus [HIV] infection status
CPT/HCPCS: 74018; 99283

== ENCOUNTER 2018-05-24 10:47 | Emergency (ER) | payer MEDICARE, OTHER ==
[~2018-05-24] VITALS: Ht 182.9 cm; Wt 85.3 kg
[~2018-05-24 10:47] MED LIST changes: +COLACE100 MG ORAL; +OMEPRAZOLE20 M3 ORAL
[2018-05-24 11:00] VITALS: BP 112/70
--- NOTE | 2018-05-24 11:13 | Emergency Room Report ---
History of Present Illness General Chief Complaint: Skin Rash/Abscess Source: Patient Present Illness HPI Patient presents with complaints of rash and itching in the back area reports that is been ongoing for the past several weeks Denies any chest pain or shortness of breath denies any contact with any foreign chemical Reports that he has been washing the area more frequently given the itching Denies any fevers Mainly involving the lower back and upper buttock area Allergies: Coded Allergies: DIPHENHYDRAMINE (Verified Allergy, Unknown, 02/01/18) Patient History Past Medical History: see triage record Pertinent Family History: none Reviewed Nursing Documentation: PMH: Agreed; PSxH: Agreed Nursing Documentation-PMH Past Medical History: No History, Except For Hx Cardiac Problems: No - HIV Hx Hypertension: Yes - Hyperlipidemia Hx Gastrointestinal Problems: Yes - GERD Review of Systems All Other Systems: negative except mentioned in HPI Physical Exam Vital Signs Date Time Temp Pulse Resp B/P (MAP) Pulse Ox O2 Delivery O2 Flow Rate FiO2 05/24/18 10:53 97.9 83 18 112/74 96 Room Air Sp02 EP Interpretation: reviewed, normal General Appearance: well appearing, no apparent distress Head: normocephalic, atraumatic Eyes: bilateral eye PERRL, bilateral eye EOMI, bilateral eye other - Contacts in ENT: normal pharynx Neck: supple Respiratory: lungs clear Cardiovascular #1: regular rate, rhythm Gastrointestinal: non tender, soft Musculoskeletal: normal inspection Neurologic: alert, oriented x3 Skin: other - There are several areas of eczema patchy in the lower back, 2 different areas of questionable possible fungal infection with mild erythema, no obvious fluctuance no dermatomal rash Lymphatic: no adenopathy Medical Decision Making Diagnostic Impression: Primary Impression: Rash and other nonspecific skin eruption ER Course Given the exam history and findings there appears to be component of eczema along with fungal infection patient is treated clinically and symptomatically and requires close outpatient follow-up Last Vital Signs Date Time Temp Pulse Resp B/P (MAP) Pulse Ox O2 Delivery O2 Flow Rate FiO2 05/24/18 10:53 97.9 83 18 112/74 96 Room Air Status: improved Disposition: HOME, SELF-CARE Condition: Improved Scripts Hydrocortisone (Hydrocortisone Cream 2.5%) Y Cream.appl 1 INCH TP DAILY for 5 Days, GM Prov: Félix Hilario DO 05/24/18 Clotrimazole* (LOTRIMIN*) 15 Gm Cream..g. 1 INCH TOPIC TWICE A DAY for 7 Days, GM Prov: Félix Hilario DO 05/24/18 Additional Instructions: Patient is provided with the discharge instructions notified to follow up with primary doctor in the next 2-3 days otherwise return to the er with any worsening symptoms. Please note that this report is being documented using DRAGON technology. This can lead to erroneous entry secondary to incorrect interpretation by the dictating instrument. Félix Hilario DO May 24, 2018 11:12
[2018-05-24] MEDS ORDERED: HYDROCORTISONE30 G2 TP (11:14)
[2018-05-24] MEDS ORDERED: CLOTRIMAZOLE15 GM TOPIC (11:14)
[2018-05-24 11:22] VITALS: BP 112/70
== END 2018-05-24 11:25 | disposition home or self-care (01) ==
LOC: EMR 11:19
DX: R21 Rash and other nonspecific skin eruption (principal); Z88.8 Allergy status to other drugs, medicaments and biological substances; K21.9 Gastro-esophageal reflux disease without esophagitis; B20 Human immunodeficiency virus [HIV] disease; E78.5 Hyperlipidemia, unspecified
CPT/HCPCS: 99282

== ENCOUNTER 2018-06-09 11:56 | Emergency (ER) | payer MEDICARE, OTHER ==
[~2018-06-09] VITALS: Ht 185.4 cm; Wt 85.3 kg
[~2018-06-09 11:56] MED LIST changes: +HYDROCORTISONE30 G2 TP
[2018-06-09] MEDS ORDERED: Metoprolol 5mg/5ml Inj IVP ONE (12:30)
--- NOTE | 2018-06-09 12:30 | NUR ---
ED Nurse Note: patient came by him self with steady gait, complaining about palpitation HR is 160, AAO x 4, skin is dry intactand warm to touch. patient was placed in gown and connected to the monitor. deny any pain
[2018-06-09 13:12] LABS: BASOPHILS % (AUTO) 2.3 % (0.0-2.0); EOSINOPHILS % (AUTO) 10.2 % (0.0-3.0); HEMATOCRIT 44.8 % (42.0-52.0); LYMPHOCYTES % (AUTO) 34.7 % (20.0-45.0); MEAN CORPUSCULAR VOLUME 96 FL (80-99); MONOCYTES % (AUTO) 13.8 % (1.0-10.0); NEUTROPHILS % (AUTO) 39.1 % (45.0-75.0); PLATELET COUNT 244 K/UL (150-450); RED BLOOD COUNT 4.67 M/UL (4.70-6.10); RED CELL DISTRIBUTION WIDTH 12.8 % (11.6-14.8); WHITE BLOOD COUNT 5.2 K/UL (4.8-10.8)
[2018-06-09 13:16] LABS: ANION GAP 7 mmol/L (5-15); BLOOD UREA NITROGEN 14 mg/dL (7-18); CALCIUM 8.7 MG/DL (8.5-10.1); CARBON DIOXIDE 29 MMOL/L (21-32); CHLORIDE 104 MMOL/L (98-107); CREATININE 1.1 MG/DL (0.55-1.30); POTASSIUM 3.8 MMOL/L (3.5-5.1); SODIUM 140 MMOL/L (136-145)
[2018-06-09 13:20] VITALS: BP 107/70
[2018-06-09 13:31] LABS: ALANINE AMINOTRANSFERASE 20 U/L (12-78); ALBUMIN 3.5 G/DL (3.4-5.0); ALKALINE PHOSPHATASE 63 U/L (46-116); ASPARTATE AMINO TRANSFERASE 29 U/L (15-37); BILIRUBIN,TOTAL 0.3 MG/DL (0.2-1.0); CREATINE KINASE 311 U/L (26-308)
--- NOTE | 2018-06-09 13:36 | NUR ---
ED Nurse Note: metoprolol was given HR is 110 patient is sleeping
--- NOTE | 2018-06-09 13:53 | Diagnostic Imaging Report ---
Indication: Chest pain Comparison: 11/08/2017 A single view chest radiograph was obtained. Findings: Cardiomediastinal appearance is within normal limits for age. The lungs are clear. Pulmonary vascularity is appropriate. The diaphragmatic contour is smooth and costophrenic angles are sharp. No pleural effusions are identified. The bones are unremarkable. Impression: No acute findings
[2018-06-09 14:50] VITALS: BP 107/65
--- NOTE | 2018-06-09 14:50 | NUR ---
gs were given to the ED Nurse Note: patient leave the hospital aginst medical advice, VSS, ambulatory, no pain. all belongings were given to the patient
[2018-06-09] MEDS ORDERED: METOPROLOL TART25 MG ORAL (14:51)
--- NOTE | 2018-06-09 15:02 | Emergency Room Report ---
History of Present Illness General Chief Complaint: Palpitations Source: Patient Present Illness HPI 37-year-old male presents ED for palpitations. Started this morning. Initially heart rate was normal but shortly after arrival heart rate went to the 160s. EKG shows A. fib. Patient states that he has high blood pressure. States that he is taking medication for his palpitations but does not taken at this time because he stopped it on his own. Denies chest pain or shortness of breath. Denies drug use at this time. Notes prior history of cocaine use. No other aggravating relieving factors. Denies any other associated symptoms Allergies: Coded Allergies: DIPHENHYDRAMINE (Verified Allergy, Unknown, 02/01/18) Patient History Past Medical History: HTN, GERD, HIV Past Surgical History: none Pertinent Family History: none Social History: Denies: smoking, alcohol use, drug use Immunizations: UTD Reviewed Nursing Documentation: PMH: Agreed; PSxH: Agreed Nursing Documentation-PMH Past Medical History: No History, Except For Hx Cardiac Problems: No - HIV, A-Fib Hx Hypertension: Yes - Hyperlipidemia Hx Gastrointestinal Problems: Yes - GERD Review of Systems All Other Systems: negative except mentioned in HPI Physical Exam Vital Signs Date Time Temp Pulse Resp B/P (MAP) Pulse Ox O2 Delivery O2 Flow Rate FiO2 06/09/18 12:04 98.1 84 20 112/38 96 Room Air Sp02 EP Interpretation: reviewed, normal General Appearance: no apparent distress, alert, GCS 15, non-toxic Head: normocephalic, atraumatic Eyes: bilateral eye normal inspection, bilateral eye PERRL ENT: hearing grossly normal, normal pharynx, no angioedema, normal voice Neck: full range of motion, supple/symm/no masses Respiratory: chest non-tender, lungs clear, normal breath sounds, speaking full sentences Cardiovascular #1: no edema, tachycardia Cardiovascular #2: 2+ carotid (R), 2+ carotid (L), 2+ radial (R), 2+ radial (L) , 2+ dorsalis pedis (R), 2+ dorsalis pedis (L) Gastrointestinal: normal bowel sounds, non tender, soft, non-distended, no guarding, no rebound Rectal: deferred Genitourinary: normal inspection, no CVA tenderness Musculoskeletal: back normal, gait/station normal, normal range of motion, non- tender Neurologic: alert, oriented x3, responsive, motor strength/tone normal, sensory intact, speech normal Psychiatric: judgement/insight normal, memory normal, mood/affect normal, no suicidal/homicidal ideation Reflexes: 3+ bicep (R), 3+ bicep (L), 3+ tricep (R), 3+ tricep (L), 3+ knee (R) , 3+ knee (L) Skin: normal color, no rash, warm/dry, well hydrated Lymphatic: no adenopathy Procedures Critical Care Time Critical Care Time i. I feel this is a highly complex case requiring extensive working including EKG/Rhythm strip, Xray/CT/US, Blood/urine lab work, repeat exams while in ED, and administration of strong opiates/narcotics for pain control, admission to hospital or close patient follow up. Total time: 40 min bedside evaluation and treatment excludes procedures (EKG). Reason for critical care: afib with RVR Possible complications: hypotension, hypertension, AK, shock, arrhythmias, metabolic acidosis, end organ damage, respiratory failure. Interventions: labs, IVFS, EKG, CXR, lopressor. Course: Patient presenting with palpitations. History of A. fib. Not taking medication at this time. Heart rate to the 160s. Given Lopressor. Cardioversion achieved. Troponins negative. U tox negative. Chest x-ray unremarkable. Patient to be admitted however states that he cannot stay. Will leave AGAINST MEDICAL ADVICE. I will provide prescription for metoprolol Consultations: nursing staff, EMS, family Performed by: Dr Sandra Tolerated well condition = serious j. because of unstable vital signs this patient had a condition that could potentially threaten life or limb. I feel this is a critical patient who required my full attention while patient was considered critical. Total Critical Care Time excluding procedures was greater than 40 minutes Medical Decision Making Diagnostic Impression: Primary Impression: Atrial fibrillation Qualified Codes: I48.91 - Unspecified atrial fibrillation ER Course Hospital Course 37-year-old M presents ED complaining of palpitations Differential diagnoses include: AK/unstable angina, contusion, muscle strain, PTX, rib fracture, pneumonia, Clinical course Patient placed on stretcher. on director of cardiac rehabilitation which shows A. fib with RVR. lopressor given with cardioversion. After initial history and physical I ordered labs, EKG, chest x-ray labs reviewed- no leukocytosis, hemoglobin/hematocrit ok, electrolytes okay, troponins negative, Utox negative EKG - afib with RVR. no acute ischemic changes interpreted by me Chest x-ray- no acute process I recommended admission for the patient. Patient states he wishes to go home. Understands the risks of leaving. Patient has competency to make his own decisions. Signed AMA form. I will provide him with low-dose of metoprolol. I will also provide PMD referrals as he does not have one here I. I feel this is a highly complex case requiring extensive working including EKG/Rhythm strip, Xray/CT/US, Blood/urine lab work, repeat exams while in ED, and administration of strong opiates/narcotics for pain control, admission to hospital or close patient follow up. Diagnosis - afib left AMA. Labs Test 06/09/18 12:25 06/09/18 12:30 White Blood Count 5.2 K/UL (4.8-10.8) Red Blood Count 4.67 M/UL (4.70-6.10) Hemoglobin 15.0 G/DL (14.2-18.0) Hematocrit 44.8 % (42.0-52.0) Mean Corpuscular Volume 96 FL (80-99) Mean Corpuscular Hemoglobin 32.2 PG (27.0-31.0) Mean Corpuscular Hemoglobin Concent 33.5 G/DL (32.0-36.0) Red Cell Distribution Width 12.8 % (11.6-14.8) Platelet Count 244 K/UL (150-450) Mean Platelet Volume 6.8 FL (6.5-10.1) Neutrophils (%) (Auto) 39.1 % (45.0-75.0) Lymphocytes (%) (Auto) 34.7 % (20.0-45.0) Monocytes (%) (Auto) 13.8 % (1.0-10.0) Eosinophils (%) (Auto) 10.2 % (0.0-3.0) Basophils (%) (Auto) 2.3 % (0.0-2.0) Sodium Level 140 MMOL/L (136-145) Potassium Level 3.8 MMOL/L (3.5-5.1) Chloride Level 104 MMOL/L (98-107) Carbon Dioxide Level 29 MMOL/L (21-32) Anion Gap 7 mmol/L (5-15) Blood Urea Nitrogen 14 mg/dL (7-18) Creatinine 1.1 MG/DL (0.55-1.30) Estimat Glomerular Filtration Rate > 60 mL/min (>60) Glucose Level 91 MG/DL (74-106) Calcium Level 8.7 MG/DL (8.5-10.1) Total Bilirubin 0.3 MG/DL (0.2-1.0) Aspartate Amino Transf (AST/SGOT) 29 U/L (15-37) Alanine Aminotransferase (ALT/SGPT) 20 U/L (12-78) Alkaline Phosphatase 63 U/L (46-116) Total Creatine Kinase 311 U/L (26-308) Creatine Kinase MB 3.0 NG/ML (0.0-3.6) Creatine Kinase MB Relative Index 0.9 Troponin I 0.022 ng/mL (0.000-0.056) Pro-B-Type Natriuretic Peptide 390 pg/mL (0-125) Total Protein 7.1 G/DL (6.4-8.2) Albumin 3.5 G/DL (3.4-5.0) Globulin 3.6 g/dL Albumin/Globulin Ratio 1.0 (1.0-2.7) Urine Opiates Screen Negative (NEGATIVE) Urine Barbiturates Screen Negative (NEGATIVE) Phencyclidine (PCP) Screen Negative (NEGATIVE) Urine Amphetamines Screen Negative (NEGATIVE) Urine Benzodiazepines Screen Negative (NEGATIVE) Urine Cocaine Screen Negative (NEGATIVE) Urine Marijuana (THC) Screen Negative (NEGATIVE) EKG Diagnostic Results Rate: tachycardiac Rhythm: other - afib ST Segments: no acute changes ASA given to the pt in ED: No Rhythm Strip Diag. Results EP Interpretation: yes Rhythm: no PVC's, no ectopy Chest X-Ray Diagnostic Results Chest X-Ray Diagnostic Results : Chest X-Ray Ordered: Yes # of Views/Limited/Complete: 1 View Indication: Chest Pain EP Interpretation: Yes Interpretation: no consolidation, no effusion, no pneumothorax, no acute cardiopulmonary disease Impression: No acute disease Electronically Signed by: Electronically signed by Germain Sandra MD Last Vital Signs Date Time Temp Pulse Resp B/P (MAP) Pulse Ox O2 Delivery O2 Flow Rate FiO2 06/09/18 13:20 98.0 160 21 107/70 98 Room Air Status: improved Disposition: AGAINST MEDICAL ADVICE Condition: Stable Scripts Metoprolol Tartrate* (METOPROLOL TARTRATE*) 25 Mg Tablet 25 MG ORAL EVERY 12 HOURS for 10 Days, TAB Prov: Germain Sandra MD 06/09/18 Referrals: Sean Karimi MD NOT CHOSEN IPA/MD,REFERRING (PCP) Patient Instructions: Atrial Fibrillation, [id number] Germain Sandra MD Jun 09, 2018 15:02
== END 2018-06-09 15:00 | disposition left against medical advice (07) ==
LOC: EMR 12:50
DX: I48.91 Unspecified atrial fibrillation (principal); Z88.8 Allergy status to other drugs, medicaments and biological substances; I10 Essential (primary) hypertension; K21.9 Gastro-esophageal reflux disease without esophagitis; B20 Human immunodeficiency virus [HIV] disease; E78.5 Hyperlipidemia, unspecified
CPT/HCPCS: 36415; 71045; 80053; 80307; 82550; 82553; 83880; 84484; 85025; 93005; 96361; 96374; 99284

== ENCOUNTER 2018-06-16 18:54 | Emergency (ER) | payer MEDICARE, OTHER ==
[~2018-06-16] VITALS: Ht 185.4 cm; Wt 85.3 kg
[~2018-06-16 18:54] MED LIST changes: +METOPROLOL TART25 MG ORAL
--- NOTE | 2018-06-16 19:14 | NUR ---
ER Nurse Note: Pt came from home c/o chest pain and palpitiations starting 06/09/18. Pt states 8/10 pain, describes it as "uncomfortable" radiating to anterior to posteior chest. Pt S1, S2 heard, cap refill less than 3 secs. Per pt, pt wants medication refill for his pain. Pt was seen on 06/09 for a-fib, pt AMA. [facility]
[2018-06-16 19:25] VITALS: BP 127/75
[2018-06-16] MEDS ORDERED: ALPRAZOLAM0.25 MG ORAL (19:41)
--- NOTE | 2018-06-16 19:42 | Emergency Room Report ---
History of Present Illness General Chief Complaint: Palpitations Source: Patient, Medical Record Present Illness HPI This is a 37-year-old male with a history of long-standing drug abuse, including cocaine., Complains of intermittent chest pain for the last 2-3 weeks. He states that lacerated cocaine was about 30 days ago. He states that he is having a lot of anxiety and unable to sleep. He states he has had a lot of panic attack as well. He states that he has had chest pain intermittently. No new chest pain today. he denies any nausea or vomiting. Allergies: Coded Allergies: DIPHENHYDRAMINE (Verified Allergy, Unknown, 02/01/18) Patient History Past Medical History: none Past Surgical History: none Pertinent Family History: none Nursing Documentation-PMH Past Medical History: No History, Except For Hx Cardiac Problems: No - HIV, A-Fib Hx Hypertension: Yes - Hyperlipidemia Hx Gastrointestinal Problems: Yes - GERD Review of Systems Constitutional: Denies: fever All Other Systems: negative except mentioned in HPI Physical Exam Vital Signs Date Time Temp Pulse Resp B/P (MAP) Pulse Ox O2 Delivery O2 Flow Rate FiO2 06/16/18 18:55 98.2 79 18 133/95 95 Room Air General Appearance: well appearing, no apparent distress Head: normocephalic, atraumatic ENT: hearing grossly normal, normal voice Neck: full range of motion, supple Respiratory: no respiratory distress, speaking full sentences Cardiovascular #1: regular rate, rhythm, no edema, no gallop, no JVD, no murmur , no rub Musculoskeletal: no calf tenderness Neurologic: alert, normal gait Psychiatric: mood/affect normal Skin: no rash Medical Decision Making Diagnostic Impression: Primary Impression: Chest pain of uncertain etiology ER Course I was particularly concerned about possible acute coronary syndrome, pericarditis, endocarditis, pulmonary embolism, pulmonary edema, pneumothorax. The patient has complete normal lung sounds. He is not tachypnea, tachycardic, hypoxic. EKG was reviewed. Had a very long discussion with the patient regarding close follow-up with his primary care physician. I feel that there is some component of anxiety. We will start the patient localizes Xanax. He should return if any change in symptoms or worsening symptoms. EKG Diagnostic Results EKG Time: 19:35 Rate: normal Rhythm: NSR Other Impression incomplete right bundle-bbranch block rate 84 beats per minute. There is no ST elevation or depression noted. Last Vital Signs Date Time Temp Pulse Resp B/P (MAP) Pulse Ox O2 Delivery O2 Flow Rate FiO2 06/16/18 19:25 98.2 89 18 127/75 98 Room Air Disposition: HOME, SELF-CARE Condition: Stable Scripts Alprazolam* (XANAX*) 0.25 Mg Tablet 0.25 MG ORAL BID PRN for For Pain, #20 TAB Prov: KAJAL RUSSO 06/16/18 Patient Instructions: Palpitations KAJAL RUSSO Jun 16, 2018 19:42
[2018-06-16 19:48] VITALS: BP 127/75
--- NOTE | 2018-06-16 19:52 | NUR ---
ER Nurse Note: Pt seen, treated, medically cleared for discharge by ERMD. Discharge instructions and prescriptions given with repeat verbalization by pt. Instructed pt to follow up with primary care provider within one week. Pt a&ox4, VSS, no signs of distress. ID band removed. Left wtih all belongings via own transportation.
== END 2018-06-16 19:56 | disposition home or self-care (01) ==
LOC: EMR 19:45
DX: R07.9 Chest pain, unspecified (principal); F14.10 Cocaine abuse, uncomplicated; E78.5 Hyperlipidemia, unspecified; I48.91 Unspecified atrial fibrillation; K21.9 Gastro-esophageal reflux disease without esophagitis; Z88.8 Allergy status to other drugs, medicaments and biological substances
CPT/HCPCS: 99283

== ENCOUNTER 2018-07-17 18:41 | Emergency (ER) | payer MEDICARE, OTHER ==
[~2018-07-17] VITALS: Ht 185.4 cm; Wt 85.3 kg
[~2018-07-17 18:41] MED LIST changes: +ALPRAZOLAM0.25 MG ORAL
[2018-07-17 18:57] VITALS: BP 131/76
--- NOTE | 2018-07-17 18:57 | NUR ---
ED Nurse Note: pt walked in for medical check up for lupus, pt states he just wanted to check out if he has lupus. no sx noted. will cont monitor.
--- NOTE | 2018-07-17 19:06 | Emergency Room Report ---
History of Present Illness General Chief Complaint: General Complaint Source: Patient Present Illness HPI 37 YO male presents to the ED C/O wanting to be tested for LUPUS. pt. denies any symptoms other than an episode of really bad fatigue last year. He denies joint pain or rashes. Pt. states he saw a documentary on YouTube and feel that he has the same symptoms and is concerned he may have this condition. Pt. denies any symptoms at this time. Denies pain, CP, palpitations, SOB, abdominal pain/tenderness. Pt. with Hx of HIV. Allergies: Coded Allergies: DIPHENHYDRAMINE (Verified Allergy, Unknown, 02/01/18) Patient History Past Medical History: see triage record, HIV Past Surgical History: none Pertinent Family History: none Reviewed Nursing Documentation: PMH: Agreed; PSxH: Agreed Nursing Documentation-PMH Past Medical History: No History, Except For Hx Cardiac Problems: No - HIV, A-Fib Hx Hypertension: Yes - Hyperlipidemia Hx Gastrointestinal Problems: Yes - GERD Review of Systems All Other Systems: negative except mentioned in HPI Physical Exam Vital Signs Date Time Temp Pulse Resp B/P (MAP) Pulse Ox O2 Delivery O2 Flow Rate FiO2 07/17/18 18:45 98.2 83 20 131/76 95 Sp02 EP Interpretation: reviewed, normal General Appearance: no apparent distress, alert, GCS 15, non-toxic Head: normocephalic, atraumatic Eyes: bilateral eye normal inspection, bilateral eye PERRL ENT: hearing grossly normal, normal voice Neck: full range of motion Respiratory: lungs clear, normal breath sounds, speaking full sentences Cardiovascular #1: regular rate, rhythm Gastrointestinal: non tender, soft Musculoskeletal: gait/station normal, normal range of motion, non-tender Neurologic: alert, oriented x3, responsive, motor strength/tone normal, sensory intact, speech normal, grossly normal Psychiatric: judgement/insight normal Skin: normal color, no rash, warm/dry, well hydrated Lymphatic: no adenopathy Medical Decision Making PA Attestation Dr. Jack is my supervising Physician whom patient management has been discussed with. Diagnostic Impression: Primary Impression: Encounter for medical screening examination ER Course 37 YO male presents to the ED C/O wanting to be tested for LUPUS. pt. denies any symptoms other than an episode of really bad fatigue last year. He denies joint pain or rashes. Pt. states he saw a documentary on YouTube and feel that he has the same symptoms and is concerned he may have this condition. Pt. denies any symptoms at this time. Denies pain, CP, palpitations, SOB, abdominal pain/tenderness. Pt. with Hx of HIV. Ddx considered but are not limited to AMS, ETOH, infection, Trauma/Fall, CVA, [place] , Psych, homelessness Vital signs: are WNL, pt. is afebrile H&PE are most consistent with normal MSE- no acute injury or disease noted at this time. pt. is NAD, NON-toxic, able to answer questions appropriately, pt. is oriented, and no signs of trauma or focal neurological deficits. ORDERS: none required at this time, the diagnosis is clinical ED INTERVENTIONS: None required at this time, pt is allowed to rest while next of Kin or family members are contacted. --Discussed with this patient that this requires specialized testing that is performed by a inspector [employer]. I discussed with this patient that I would be giving him a list of dermatologists in the area that he can follow-up with as with his current presentation I do not suspect an emergency medical condition. Pt. is stable for close outpatient follow up. DISCHARGE: At this time pt. is stable for d/c to home. Will provide printed patient care instructions, and any necessary prescriptions. Care plan and follow up instructions have been discussed with the patient prior to discharge. Last Vital Signs Date Time Temp Pulse Resp B/P (MAP) Pulse Ox O2 Delivery O2 Flow Rate FiO2 07/17/18 18:45 98.2 83 20 131/76 95 Disposition: HOME, SELF-CARE Condition: Stable Patient Instructions: Medical Screening Exam Additional Instructions: Take any previously prescribed medications as directed. Follow up with a Primary Care Provider in 3-5 days, even if your symptoms have resolved. --Please review list of primary care clinics, if you do not already have a primary care provider Return sooner to ED if new symptoms occur, or current symptoms become worse. - Please note that this Emergency Department Report was dictated using [employer] technology software, occasionally this can lead to erroneous entry secondary to interpretation by the dictation equipment. Radha Catalan Jul 17, 2018 19:06
--- NOTE | 2018-07-17 19:11 | NUR ---
ED Nurse Note: pt cleared to be d/c per ER provider, pt discharge and list of providers provided per ER provider, pt advised to make an appointment and follow up, pt verbalized understanding and agrees with plan. vss, ambulatory w/ steady gait, left w/ all belongings.
[2018-07-17 19:16] VITALS: BP 131/76
== END 2018-07-17 19:11 | disposition home or self-care (01) ==
LOC: EMR 19:00
DX: Z13.89 Encounter for screening for other disorder (principal); I48.91 Unspecified atrial fibrillation; K21.9 Gastro-esophageal reflux disease without esophagitis; E78.5 Hyperlipidemia, unspecified
CPT/HCPCS: 99281

== ENCOUNTER 2018-08-11 18:16 | Emergency (ER) | payer MEDICARE, OTHER ==
[~2018-08-11] VITALS: Ht 185.4 cm; Wt 83.9 kg
--- NOTE | 2018-08-11 19:20 | Emergency Room Report ---
History of Present Illness General Chief Complaint: Lower Extremity Injury Source: Medical Record Present Illness HPI 37 year-old male presents to the emergency department complaining of localized 10 out of 10 in severity discomfort in the right foot/ankle that he describes as a "swollen feeling ". Patient denies significant or appreciable trauma or fall. Patient states that a few days prior he was having pain in the right knee joint. Patient denies erythema, warmth, obvious deformity or open wounds. Patient reports that his pain is exacerbated upon walking. Denies numbness tingling or loss of sensation or gross motor movements of the extremities, incontinence of bowel or bladder. Denies CP, SOB, calf pain, recent travel, Palpitations, LOC, AMS, dizziness, Changes in Vision, weakness or a sudden severe headache. Hx of A-fib and HIV. Allergies: Coded Allergies: DIPHENHYDRAMINE (Verified Allergy, Unknown, 02/01/18) Patient History Past Medical History: see triage record, HIV Past Surgical History: none Pertinent Family History: none Reviewed Nursing Documentation: PMH: Agreed; PSxH: Agreed Nursing Documentation-PMH Past Medical History: No History, Except For Hx Cardiac Problems: No - HIV, A-Fib Hx Hypertension: Yes - Hyperlipidemia Hx Gastrointestinal Problems: Yes - GERD Review of Systems All Other Systems: negative except mentioned in HPI Physical Exam Vital Signs Date Time Temp Pulse Resp B/P (MAP) Pulse Ox O2 Delivery O2 Flow Rate FiO2 08/11/18 18:23 98.2 99 18 129/83 98 Room Air Sp02 EP Interpretation: reviewed, normal General Appearance: no apparent distress, alert, GCS 15, non-toxic Head: normocephalic, atraumatic Eyes: bilateral eye normal inspection, bilateral eye PERRL ENT: hearing grossly normal, normal voice Neck: full range of motion Respiratory: lungs clear, normal breath sounds, speaking full sentences Cardiovascular #1: regular rate, rhythm, normal capillary refill Cardiovascular #2: 2+ dorsalis pedis (R) Musculoskeletal: back normal, gait/station normal, normal range of motion, tender - mild ttp to the Dorsum of the right foot, no swelling, no localized ttp , no obvious deformity. Neurologic: alert, oriented x3, responsive, motor strength/tone normal, sensory intact, speech normal, grossly normal Psychiatric: judgement/insight normal Skin: normal color, no rash, warm/dry, well hydrated Medical Decision Making PA Attestation Dr. Jack is my supervising Physician whom patient management has been discussed with. Diagnostic Impression: Primary Impression: Foot pain, right Additional Impression: Joint pain Qualified Codes: M25.571 - Pain in right ankle and joints of right foot ER Course 37 year-old male presents to the emergency department complaining of localized 10 out of 10 in severity discomfort in the right foot/ankle that he describes as a "swollen feeling ". Patient denies significant or appreciable trauma or fall. Patient states that a few days prior he was having pain in the right knee joint. Patient denies erythema, warmth, obvious deformity or open wounds. Patient reports that his pain is exacerbated upon walking. Denies numbness tingling or loss of sensation or gross motor movements of the extremities, incontinence of bowel or bladder. Denies CP, SOB, calf pain, recent travel, Palpitations, LOC, AMS, dizziness, Changes in Vision, weakness or a sudden severe headache. Hx of A-fib and HIV. Ddx considered but are not limited to Fracture, dislocation, contusion, Sprain/ Strain/Spasm Vital signs: are WNL, pt. is afebrile H&PE are most consistent with foot pain, no evidence of fractures or dislocations. NVI, normal cap refill. No evidence of infection ORDERS: - X-ray's not performed as pt. has no trauma or fall, no obvious deformity and no localized ttp. ED INTERVENTIONS: - -I do not identify an emergent condition at this time. With current presentation, pt. is stable for close outpatient follow up and conservative treatment. D/w pt. to return promptly to ED with worsening or new symptoms.- Pt. verbalizes' understanding and agreement with proposed treatment plan. DISCHARGE: At this time pt. is stable for d/c to home. Will provide printed patient care instructions, and any necessary prescriptions. Care plan and follow up instructions have been discussed with the patient prior to discharge. Last Vital Signs Date Time Temp Pulse Resp B/P (MAP) Pulse Ox O2 Delivery O2 Flow Rate FiO2 08/11/18 18:23 98.2 99 18 129/83 98 Room Air Disposition: HOME, SELF-CARE Condition: Stable Scripts Meloxicam* (MELOXICAM*) 15 Mg Tablet 15 MG PO DAILY for 7 Days, #7 TAB Prov: Radha Catalan 08/11/18 Patient Instructions: Joint Pain, [id number] Additional Instructions: Take medications as directed. Follow up with a Primary Care Provider in 3-5 days, even if your symptoms have resolved. RHEUMATOLOGY FOLLOW UP / EVAL --Please review list of primary care clinics, if you do not already have a primary care provider Return sooner to ED if new symptoms occur, or current symptoms become worse. - Please note that this Emergency Department Report was dictated using [employer] technology software, occasionally this can lead to erroneous entry secondary to interpretation by the dictation equipment. Radha Catalan Aug 11, 2018 19:20
[2018-08-11] MEDS ORDERED: MELOXICAM15 MG PO (19:21)
[2018-08-11 19:51] VITALS: BP 129/83
== END 2018-08-11 19:51 | disposition home or self-care (01) ==
LOC: EMR 18:42
DX: M25.571 Pain in right ankle and joints of right foot (principal); Z88.8 Allergy status to other drugs, medicaments and biological substances; B20 Human immunodeficiency virus [HIV] disease; E78.5 Hyperlipidemia, unspecified; K21.9 Gastro-esophageal reflux disease without esophagitis
CPT/HCPCS: 99282